=== PATIENT | female | born 1965 | race Caucasian/White ===

== ENCOUNTER 2019-02-18 14:45 | Inpatient (IN) | payer SELFPAY ==
[2019-02-18] VITALS (13 sets, daily range): BP systolic 111–163; BP diastolic 66–111; PULSE 85–162; RESP 12–28; TEMP 36.7–37.1; O2SAT 62–95; BMI 36.3; BMI 35.2
--- NOTE | 2019-02-18 15:11 | EKG12_ITS ---
Test Reason : Blood Pressure : / mmHG Vent. Rate : 088 BPM Atrial Rate : 088 BPM P-R Int : 170 ms QRS Dur : 058 ms QT Int : 342 ms P-R-T Axes : 054 194 050 degrees QTc Int : 413 ms Sinus rhythm with Premature atrial complexes Possible Left atrial enlargement Right superior axis deviation Low voltage QRS Cannot rule out Anterior infarct , age undetermined Abnormal ECG Confirmed by AYE MARTINEZ, SHAY ([id number]), proposal editor EZEQUIEL GARCIA ([id number]) on 02/21/2019 10:49:27 AM Referred By: Confirmed By:SHAY GRIFFITHS MD
--- NOTE | 2019-02-18 15:12 | ED.DCSUM_ITS ---
- ER Visit Summary Date of Service: 02/18/19 Chief Complaint: Shortness of breath and leg swelling History of Present Illness: The patient is a 53 F. Past medical or surgical history. Patient has not seen a doctor for years. Currently she is on no medications. She states the last 2+ months she is been short of breath and swelling of her abdomen and lower extremities. She attributed all this to seasonal allergies. States that shortness of breath comes and goes. She denies any fever or chills. No hemoptysis. No chest pain. Physical Examination: Middle-aged female. Vital signs stable except she is a pulse of 60% in triage. She is hypoxic. H EENT exam unremarkable. Neck nontender. Lungs clear to auscultation bilaterally. Heart regular rhythm no murmur rate 100. Abdomen soft. Swollen. Nontender. No peritoneal signs. Extremities moves all 4. She does have 1-2+ pitting edema both lower extremities. Calves are nontender. He is able to do both dorsi plantarflexion normal creative assistant strength. Neurologically she is awake alert with no focal motor deficits. Test Results: CBC shows white count of 9. Hemoglobin 19 which is probably system with chronic hypoxia. Electrolytes show sodium 134. Chloride 92. CO2 39. Normal creatinine and gap. Liver enzymes normal. Troponin normal. BNP elevated 645. Chest x-ray shows cardiomegaly with a moderate to large right pleural effusion. EKG sinus rhythm rate 88 with PACs. No signs of PA or i schemia. There is low voltage. Emergency Department Course and Treatment: Clinically patient neither has congestive heart failure or possibly liver cirrhosis causing edema versus other etiologies. She is hypoxic on presentation but after oxygen she is now in the mid 90s. She is currently not in distress. Repeat exam she is resting comfortably on oxygen is been no significant change she and I went over her test results. Treatment Plan: I spoke to the hospitalist and she wanted me to obtain a CAT scan of the chest abdomen pelvis to evaluate the cardiomegaly, effusion and possible abdominal ascites prior to admission. Disposition: Admission Impression: Acute dyspnea with hypoxia Acute bilateral lower extremity edema Cardiomegaly with right pleural effusion This note was generated with [employer] dictation software. It may contain incorrect words, spelling, and punctuation that were not noted in review of the chart prior to signing ED Disposition - Plan for ED Patient: Referrals: NOT,DEFINED [NON-STAFF] -
--- NOTE | 2019-02-18 15:17 | NURSING ---
NO OLD EKGS
--- NOTE | 2019-02-18 15:28 | RAD_ITS ---
STUDY: X-RAY CHEST REASON FOR EXAM: Female, 53 years old. Chest pain TECHNIQUE: AP COMPARISON: None. FINDINGS: EKG leads project over the chest. Parenchymal opacity at the right lung base 6 years the right hemidiaphragm. Small right pleural effusion is noted. Parenchymal opacity and/or minor fissural fluid also identified. Left lung is clear. There is borderline cardiomegaly. Normal mediastinum and jammie. Normal visualized pulmonary arteries. Normal visualized aortic arch and descending thoracic aorta. No acute bony process. There is no demonstrated abnormality of the visualized soft tissue structures of the upper abdomen. RAD/Chest 1 View (Portable) IMPRESSION: Parenchymal consolidation of the right lung base with small effusion. May represent pneumonia but recommend follow-up x-ray to ensure complete resolution/exclude mass. Electronically Signed: Augustin Landon MD ([place]) at 15:48 EDT , Service support ,
[2019-02-18 15:55] LABS: Absolute Lymphocyte Count 0.78 X10^3/uL (0.83-4.51); Basophil# 0.07 X10^3/uL; Basophil% 0.8 % (0-1); Eosinophil# 0.05 X10^3/uL; Eosinophils% 0.6 % (0-5); Lymphocyte # 0.78 X10^3/ul (4.0); Lymphocyte % 8.6 % (19-41); Mean Corp Hgb Conc 32.5 g/dL (32-36); Mean Corpuscular Hgb 31.9 pg (27.0-32.0); Mean Corpuscular Volume 98.3 fL (81-99); Mean Platelet Vol. 10.3 fl (6.2-12.0); Monocyte# 1.05 X10^3/uL; Monocyte% 11.6 % (0-10); NRBC Flagged by Analyzer 0 % (0-5); Neutrophil # 7.04 X10^3/uL (2.7-7.7); Neutrophil % 78.1 % (47-70); Platelet Count 205 K/mm3 (150-450); RBC Distribution Width CV 13.8 % (11.6-14.6); RBC Distribution Width SD 49.9 fl (35.1-43.9); Red Blood Count 5.95 M/mm3 (4.2-5.4)
[2019-02-18 15:59] LABS: Hematocrit 58.5 % (37-47)
--- NOTE | 2019-02-18 16:00 | ED.RN ---
LAB WITH CRITICAL VALUE OF 19.[address] BAUER NOTIFIED AT THIS TIME.
[2019-02-18 16:02] LABS: AST(SGOT) 15 U/L (15-37); Alanine Aminotransfer ALT/SGPT 12 U/L (13-56); Albumin, Serum 3.3 g/dL (3.2-5.0); Alkaline Phosphatase 91 U/L (45-117); Anion Gap 3 (5-15); BUN 3 mg/dL (7-18); BUN/Creat Ratio 5.1 RATIO (10-20); Bilirubin, Direct 0.45 mg/dL (0.00-0.30); Calcium,Total 8.9 mg/dL (8.5-10.1); Chloride 92 mmol/L (98-107); Creatinine, Serum 0.59 mg/dL (0.55-1.02); EST Glomerular Filtration Rate 113 mL/min (>60); Est Glom Filt Rate - Afr Amer 136 mL/min (>60); Estimated Creatinine Clearance 89.12 ml/min; Globulin 3.8 g/dL (2.2-4.2); Glucose 98 mg/dL (74-106); Potassium 4.4 mmol/L (3.5-5.1); Protein, Total 7.1 g/dL (6.4-8.2); Sodium Level 134 mmol/L (136-145)
[2019-02-18 16:26] LABS: BNP,B-Type NATRIURETIC PEPTIDE 592.4 pg/mL (0-100)
--- NOTE | 2019-02-18 16:38 | HP.PCM_ITS ---
History of Present Illness Date of Admission: 02/18/19 Chief Complaint: shortness of breath The patient is a 53 year old F with no significant PMH; she has not seen a doctor since 1990. She was admitted through the ED on 02/18/2019 with a complaint of progressively worsening shortness of breath for the past 2 months. She had associated exertional shortness of breath which was still present at rest and had orthopnea and PND. She denied any weight loss and denied any nausea vomiting or diarrhea. She noted that she had lower extremity swelling and says she felt that her abdomen had also become a bit distended. She has an extensive smoking history and has about a [id number] smoking history minimum a nd was also drinking heavily, drinking about 10 cans of beer a day since the and only quit about a month ago. She denies any weight loss. Review of systems otherwise negative. On arrival in the ED she was saturating in the 60s; saturation went up to the 90s with oxygen administration. Vitals were otherwise stable. Labs showed sodium of 135,a dn bicarb of 39; BNP was 592, and initial troponin was negative. CBC showed hemoglobin of 19 with hematocrit of 58.5 and platelets of 205 as well as white cell count of 9. CXR showed parenchymal consolidation of the right lung base with small effusion. 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 Quit drinking ~ 1 month ago Drugs: None - *Family History Maternal History Items: No pertinent history Paternal History Items: No pertinent history Review of Systems Constitutional: Denies: Chills, Fever, Malaise, Weakness, Weight Change Eyes: Denies: Blurred vision HEENT: Denies: Head Aches, Sinus Congestion, Sinus Drainage Cardiovascular: Reports: Edema, Orthopnea, Paroxysmal Noc. Dyspnea. Denies: Chest Pain, Heaviness, Light Headedness, Palpitations Respiratory: Reports: Shortness of Breath, Shortness of breath at rest, Shortness of breath upon exertion. Denies: Cough, Sputum production Gastrointestinal: Denies: Abdominal Pain, Diarrhea, Dyspepsia, Nausea, Vomiting Genitourinary: Denies: Dysuria Musculoskeletal: Denies: Joint Pain, Joint Tenderness Skin: Denies: Rash, Wounds Neurological: Denies: Numbness, Tingling, Focal weakness Psychiatric: Denies: Anxiety, Depression, Homicidal Ideations, Suicidal Ideations Hematologic/ Lymphatic: Denies: Easy Bruising, Easy Bleeding VTE Information - Inpt Only VTE Present on Admission: No VTE Pharm Prophylaxis ordered?: Yes - Physical Exam Vitals/I&O's: Vital Signs Temp Pulse Resp BP Pulse Ox 98.4 F 96 18 158/109 H 95 02/18/19 14:48 02/18/19 16:12 02/18/19 14:48 02/18/19 16:12 02/18/19 16:12 Oxygen Flow Rate (L/min) 6 Oxygen Delivery Method Nasal Cannula Weight: 204 lb 12.951 oz Body Mass Index (BMI) 36.3 General: Alert, Oriented x3, Cooperative, No apparent distress HEENT: Atraumatic, PERRLA, EOMI, Normocephalic Oral: Dry Mucosa Neck: Supple, No JVD, Negative Carotid Bruits Lungs: - - markedly decreased breath sounds bibasally, mild wheezing in mid and lower lung pacheco; no crackles.on 6L of oyxgen Abdomen: Bowel Sounds Present, Soft, Non Tender, - - mild abdominal distension Extremities: No clubbing, No cyanosis, Edema - 2+ bipedal pitting edema Skin: - - diffuse erythema of abdomen and LE; has erythema and cyanosis of palms bilaterally Musculoskeletal: No Tenderness to Palpation of Joints or Extremities Lymphatic: No Cervical, Supraclavicular, or Inguinal Adenopathy Neurological: Cranial nerves II-XII grossly intact, Neuro grossly intact, Motor Exam 5/5 strength throughout Psych/Mental Status: Normal Affect, Appropriate, Alert and oriented to time, place, person, mood and affect Laboratory Results 02/18/19 15:25: WBC 9.0, RBC 5.95 H, Hgb 19.0 H*, Hct 58.5 H, MCV 98.3, MCH 31.9, MCHC 32.5, RDW Std Deviation 49.9 H, RDW Coeff of Charles 13.8, Plt Count 205, MPV 10.3, Immature Gran % (Auto) 0.300, Neut % (Auto) 78.1 H, Lymph % (Auto) 8.6 L, [place] % (Auto) 11.6 H, Eos % (Auto) 0.6, Baso % (Auto) 0.8, Absolute Neuts (auto) 7.0, Absolute Lymphs (auto) 0.78 L, Nucleated RBC % 0 02/18/19 15:25: Sodium 134 L, Potassium 4.4, Chloride 92 L, Carbon Dioxide 39.0 H, Anion Gap 3 L, BUN 3 L, Creatinine 0.59, Estim Creat Clear Calc 89.12, Est GFR (MDRD) Af Amer 136, Est GFR (MDRD) Non-Af 113, BUN/Creatinine Ratio 5.1 L, Glucose 98, Calcium 8.9, Total Bilirubin 0.90, Direct Bilirubin 0.45 H, AST 15, ALT 12 L, Alkaline Phosphatase 91, Troponin I < 0.015, Total Protein 7.1, Albumin 3.3, Globulin 3.8 02/18/19 15:25: B-Natriuretic Peptide 592.4 H Diagnostic Data Chest X-Ray 02/18/19 15:28 IMPRESSION: Parenchymal consolidation of the right lung base with small effusion. May represent pneumonia but recommend follow-up x-ray to ensure complete resolution/exclude mass. Electronically Signed: Augustin Landon MD ([place]) at 15:48 EDT , Service support , Assessment/Plan 53-year-old female admitted with complaint of shortness of breath for 2 months. 1. Acute hypoxic respiratory failure due to pleural effusion and heart failure (EF unknown) * admit to PC[facility] with telemetry * was saturating in the 60s on admission; required up to 6L of oxygen for sats to go up to 90s * no ABG done * CXR showed right sided pleural effusion and cardiomegaly * get ABG stat * titrate oxygen to maintain sats>90% * IV lasix 40mg bid * CT chest with IV contrast, Abdominopelvic CT scan: chest CT showed large right and trace left pleural effusions with pulmonary volume loss and atelectasis greater on the right and the left and right upper abdominal ascites and body wall edema as well as skin thickening of the bilateral breasts and mild cardiomegaly. * CT abdomen pelvis showed moderate diffuse free fluid and no other definite acute abnormalities. * consult pulmonology * 2. Right pleural effusion * possible etiologies include heart failure, lung malignancy due to extensive history of smoking. * I am not convinced she has an infection, as symptoms have been going on for 2 months * diurese for heart failure; consult pulmonology * CT chest pending for further delineation * 3. Heart failure (ef Unknown) * BNp was elevated at 592.4; CXR showed cardiomegaly * get 2D echo * diurese with IV lasix 40mg bid * EKG showed no acute ST changes. * strict input output chart; fluid restriction to 1500 cc daily * 4. Polycythemia * likely a secondary polycythemia, as she has an extensive smoking history * patient has diffuse erythema and dusky bluish discoloration of her palms and lips * Hb was 19, with HCT of 58.5 * chest CT pending to evaluate for possible malignancy causing polycythemia: findings as under 1. * counseled to quit smoking * consider hematology/oncology consult after CT chest is evaluated * 5. metabolic alkalosis: bicarb is 39; this is likely compensatory to Co2 retention as she has an extensive smoking history. Will get ABG to evaluate 6. Chronic alcohol abuse: * Quit about a month ago but states she is to drink about 10 beers a day for the past 30 years. * Has never gone into withdrawal. * Liver enzymes are mildly elevated direct bilirubin at 0.45 but is otherwise normal: i therefore do not think cirrhosis is high on the differential list for cause of LE edema * Will monitor. DVT prophylaxis: Lovenox CODE STATUS: full code * Patient and counseled extensively about different types of CODE STATUS including full code, DNR CCA and DNR CCA. Patient elects to be full code. Total [id number] time 16 minutes. Code Visit Inpatient E&M: 38124 Init Hosp L3 Procedures: 36953 Advncd Care Plan 30 Min
--- NOTE | 2019-02-18 16:38 | CT_ITS ---
STUDY: CT ABDOMEN AND PELVIS WITH CONTRAST REASON FOR EXAM: Female, 53 years old. Abdominal distention and ascites. RADIATION DOSAGE (If Supplied By Facility): CTDIvol = ( 22.23 ) mGy, DLP = ( 2102.76 ) mGycm TECHNIQUE: Transaxial images were obtained from the dome of the diaphragm to the symphysis pubis without oral contrast. IV Isovue 300 100CC was administered. Sagittal and coronal images were reconstructed. Individualized dose optimization techniques were used for this CT. COMPARISON: CT of the chest of the same day.. FINDINGS: See separate report for discussion of the chest. There is moderate ascites in all quadrants. Grossly normal liver. No masses. No specific evidence for cirrhosis although it is not Nondistended gallbladder with a slightly thickened wall and pericholecystic edema. No gross stones. Pancreas and spleen grossly normal. Normal bilateral adrenal glands. Normal right kidney. Normal left kidney. Evaluation of the GI tract is limited by absence of oral contrast. Cannot exclude stomach wall thickening. No dilated loops of bowel or evidence for obstruction. Cannot exclude segmental thickening of the toure of the small or large bowel. Cannot exclude enteritis or colitis. Moderate diffuse fecal retention. Diverticulosis without definite diverticulitis. Appendix within normal limits. Normal abdominal aorta. Normal inferior vena cava. There is borderline retroperitoneal lymphadenopathy with enlarged nodes no greater than 10mm in the short axis diameter. Normal urinary bladder. Diffuse anasarca of the abdominal wall. Normal osseous structures. CT/Abdomen/Pelvis W IV Cont ONLY IMPRESSION: Moderate diffuse free fluid. No other definite acute abnormalities although evaluation of the GI tract is limited because oral contrast was not given. Electronically Signed: Wilmer Diaz MD at 17:24 EDT , Service support ,
--- NOTE | 2019-02-18 16:38 | CT_ITS ---
STUDY: CT CHEST WITH CONTRAST REASON FOR EXAM: Female, 53 years old. Abdominal distention, ascites RADIATION DOSAGE (If Supplied By Facility): CTDIvol = ( 22.23 ) mGy, DLP = ( 2102.76 ) mGycm TECHNIQUE: Transaxial imaging was performed following intravenous administration of IV 100mL Isovue-300 100CC. Multiplanar coronal and sagittal images were reformatted. Individualized dose optimization techniques were used for this CT. COMPARISON: Chest x-ray from earlier today FINDINGS: There is volume loss and atelectasis involving the right lower lobe and right middle lobe. Mild atelectasis of the medial right upper lobe. There are a few subsegmental areas of atelectasis involving the left lower lobe and lingula. Small volume left pleural effusion. A large volume right pleural effusion is identified. No pneumothorax. There is mild cardiac enlargement. There are multiple small lymph nodes within the mediastinum, which are normal in size and morphology most compatible with reactive lymph hyperplasia. Normal hilar regions. Normal enhanced pulmonary arteries. Normal aorta arch and descending thoracic aorta. There are multi-level degenerative changes of the thoracic spine. There is mild ascites of the upper abdomen. Diffuse body wall edema. There is skin thickening of the right and left breasts. CT/Chest WITH Contrast IMPRESSION: 1. Large right and trace left pleural effusions with right more than left pulmonary volume loss/atelectasis. 2. Right upper abdominal ascites (small-volume) partially visualized. 3. Body wall edema. Skin thickening of the bilateral breasts. 4. Mild cardiomegaly. Electronically Signed: Augustin Landon MD ([place]) at 17:31 EDT , Service support ,
--- NOTE | 2019-02-18 16:42 | NURSING ---
DR BOLAND IN ER
--- NOTE | 2019-02-18 16:42 | NURSING ---
PCU ACUTE HYPOXIC RESP FAILURE KRYSTIAN
[2019-02-18] MEDS: Furosemide 40 MG/4 ML Vial IV (18:28)
[2019-02-18] MEDS: Lisinopril 10 MG Tablet PO (18:29)
[2019-02-18] MEDS: 0.9% Saline Lock 10 ML Syringe IV (18:34)
[2019-02-18 20:31] LABS: Allen Test POS; Base Excess 18 mmol/L (-2 to +2); Bicarbonate 44.6 mmol/L (22-26); Blood Gas Specimen Type ART; O2 Delivery Device Nasal Can; PO2 79 mmHG (75-100); SITE L Radial; SO2 93 % (95-99); Time Given 2013; Total Carbon Dioxide 47 mmol/L; pCO2 90.6 mmHg (35-45)
--- NOTE | 2019-02-18 21:08 | CPS ---
Critical results read to Dr. Chapa
[2019-02-18 22:50] LABS: Allen Test POS; Base Excess 19 mmol/L (-2 to +2); Bicarbonate 45.1 mmol/L (22-26); Blood Gas Specimen Type ART; EPAP 5; FI02 40; IPAP 13; PO2 70 mmHG (75-100); RR 12; SITE R Radial; SO2 91 % (95-99); Time Given 2235; Total Carbon Dioxide 48 mmol/L; pCO2 88.6 mmHg (35-45); pH 7.32 (7.35-7.45)
--- NOTE | 2019-02-18 23:44 | CPS ---
Critical results read to physician
[2019-02-19] VITALS (25 sets, daily range): BP systolic 93–119; BP diastolic 52–76; PULSE 70–96; RESP 14–21; TEMP 36.4–37; O2SAT 85–93
--- NOTE | 2019-02-19 01:15 | NURSING ---
This RN called respiratory at time to adjust pt bipap settings as she was only satting 86%.
--- NOTE | 2019-02-19 05:55 | ECHOD_ITS ---
Reason For Study: CHF Procedure This was a 2D Doppler, Color Flow transthoracic echocardiogram. Exam performed portable in patient room. Left Ventricle Normal LV size. Left ventricular systolic function is normal. The estimated ejection fraction is 55 %. Stage 1 diastolic dysfunction. No regional wall motion abnormalities noted. Right Ventricle Moderately dilated right ventricle. Mild global right ventricular systolic dysfunction. Atria The left atrium is severely enlarged. The right atrium is severely enlarged. Mitral Valve Normal mitral valve. Mild-Moderate (1-2+) eccentric mitral valve insufficiency. Tricuspid Valve Normal tricuspid valve. Moderate (2+) tricuspid valve insufficiency. Pulmonary artery systolic pressure is 48 mmHg. Aortic Valve Normal aortic valve. Pulmonic Valve Normal pulmonic valve. Great Vessels Normal aortic root. The pulmonary artery is normal size. Normal inferior vena cava. Pericardium/Pleural Small pericardial effusion. MMode/2D Measurements & Calculations LVIDd: 3.8 cm IVSd: 1.1 cm Ao root diam: 3.1 cm LVIDs: 2.5 cm LVPWd: 1.0 cm RVDd: 4.3 cm FS: 32.7 % LAV(MOD-bp): 100.1 ml LA A4 area: 31.6 cm2 LA dimension(2D): 3.7 cm LAV(MOD-bp) Indexed: 52.1 ml/m2 LAV(MOD-sp2): 91.9 ml LAV(MOD-sp4): 113.9 ml RA A4 area: 30.8 cm2 Time Measurements MV dec time: 0.28 sec Doppler Measurements & Calculations MV E max ariel: 95.9 cm/sec Lat Peak E' Areil: 11.9 cm/sec Med Peak E' Ariel: 6.3 cm/sec MV A max ariel: 101.1 cm/sec E/E' lat: 8.0 E/E' med: 15.1 MV E/A: 0.95 Ao V2 max: 206.0 cm/sec LV V1 max: 112.5 cm/sec PA V2 max: 114.4 cm/sec Ao max P.0 mmHg LV V1 max P.1 mmHg Ao V2 mean: 142.4 cm/sec LV V1 mean P.9 mmHg Ao mean P.0 mmHg LV V1 mean: 80.5 cm/sec Ao V2 VTI: 34.1 cm LV V1 VTI: 21.3 cm TR max ariel: 324.4 cm/sec TR max P.1 mmHg Interpretation Summary Normal LV size. Left ventricular systolic function is normal. The estimated ejection fraction is 55 %. Stage 1 diastolic dysfunction. The left atrium is severely enlarged. The right atrium is severely enlarged. Pulmonary artery systolic pressure is 48 mmHg. Small pericardial effusion. Ordering Physician: Darline Chapa Referring Physician: NO PCP Performed By: Aarti Murguia RDCS, RVT
[2019-02-19 06:37] LABS: Absolute Lymphocyte Count 0.82 X10^3/uL (0.83-4.51); Absolute Neutrophil Count 5.4 X10^3/uL (2.0-7.7); Basophil# 0.04 X10^3/uL; Basophil% 0.6 % (0-1); Eosinophil# 0.08 X10^3/uL; Eosinophils% 1.1 % (0-5); Hematocrit 55.5 % (37-47); Hemoglobin 17.5 g/dL (12.0-15.0); Lymphocyte # 0.82 X10^3/ul (4.0); Lymphocyte % 11.3 % (19-41); Mean Corp Hgb Conc 31.5 g/dL (32-36); Mean Corpuscular Hgb 31.8 pg (27.0-32.0); Mean Corpuscular Volume 100.9 fL (81-99); Mean Platelet Vol. 10.2 fl (6.2-12.0); Monocyte# 0.92 X10^3/uL; Monocyte% 12.7 % (0-10); NRBC Flagged by Analyzer 0 % (0-5); Neutrophil # 5.36 X10^3/uL (2.7-7.7); Neutrophil % 73.9 % (47-70); Platelet Count 179 K/mm3 (150-450); RBC Distribution Width CV 13.9 % (11.6-14.6); RBC Distribution Width SD 51.8 fl (35.1-43.9); White Blood Count 7.3 K/mm3 (4.4-11.0)
[2019-02-19 06:52] LABS: Anion Gap 1 (5-15); BUN 3 mg/dL (7-18); BUN/Creat Ratio 5.8 RATIO (10-20); Chloride 96 mmol/L (98-107); Cholesterol 120 mg/dL (200); Creatinine, Serum 0.52 mg/dL (0.55-1.02); EST Glomerular Filtration Rate 130 mL/min (>60); Est Glom Filt Rate - Afr Amer 157 mL/min (>60); Estimated Creatinine Clearance 101.12 ml/min; Glucose 74 mg/dL (74-106); High Density Lipoprotein 56 mg/dL; Potassium 4.1 mmol/L (3.5-5.1); Sodium Level 138 mmol/L (136-145); Triglycerides 44 mg/dL; Very Low Density Lipoprotein 9 mg/dL (5-40)
--- NOTE | 2019-02-19 07:02 | PCM.CONS.PUL ---
Reason for Consult Date of Consultation: 02/19/19 Reason for Consultation: Acute hypoxemic respiratory failure History of Present Illness: The patient is a 53-year-old female, with a history as outlined below, who presented to the emergency department on February 18 with complaints of gradually worsening shortness of breath over several months duration with associated abdominal and lower extremity swelling. The patient does have a known history of both tobacco and alcohol dependency. The patient reports that she currently smokes 1 pack of cigarettes per day and has been doing so for the last 35 years. 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 She does not currently utilize inhalers at her baseline. She does not utilize supplemental oxygen at her baseline either. She does report that she previously drank upwards of 15 beers daily, but states that she has been abstinent from alcohol consumption now for 1 month. On presentation to the emergency department, the patient was noted to be afebrile, mildly tachycardic and hemodynamically stable. She was noted to be hypoxemic on room air. Initial laboratory evaluation revealed no evidence of a leukocytosis. Hemoglobin was noted to be increased to 19 g/dL. Chemistry profile was notable for a serum bicarbonate of 39 with normal transaminase levels. Troponin was negative. BNP was elevated to 592. Arterial blood gas obtained on 6 L/min via nasal cannula revealed a pH of 7.30 with a corresponding PCO2 of 90 and PO2 of 79. CT abdomen/pelvis revealed moderate diffuse free fluid without specific evidence for cirrhosis. A contrasted chest CT revealed evidence of a small left-sided pleural effusion along with a moderate to large right pleural effusion. The patient was subsequently admitted to the progressive care unit where she was placed on diuretic therapy for presumptive decompensated heart failure. In addition, she did require the initiation of BiPAP therapy. Past Medical History Allergies No Known Allergies Allergy (Verified 02/18/19 14:46) Home Medications: Ambulatory Orders Medication Instructions Recorded NK 02/18/19 Surgical History: no surgical history Psychiatric History: No pertinent psych hx TAPE CUTTER History: No pertinent TAPE CUTTER history Lives: With Family Smoking Status: Heavy Smoker (>10/day) Tobacco Use: Cigarettes Alcohol: Heavy - used to drink 10 beers daily. Quit drinking ~ 1 month ago Drugs: None - *Family History Maternal History Items: No pertinent history Paternal History Items: No pertinent history Review of Systems Constitutional: Reports: Weight Change. Denies: Chills, Fever Eyes: Denies: Blurred vision, Double vision HEENT: Denies: Head Aches, Sinus Congestion, Sinus Drainage Cardiovascular: Denies: Chest Pain, Palpitations Respiratory: Reports: Shortness of Breath. Denies: Cough Gastrointestinal: Denies: Diarrhea, Nausea, Vomiting Genitourinary: Denies: Dysuria Musculoskeletal: Denies: Joint Pain, Joint Tenderness Skin: Reports: Skin Changes Neurological: Denies: Numbness, Tingling, Focal weakness Psychiatric: Denies: Anxiety, Depression, Homicidal Ideations, Suicidal Ideations Hematologic/ Lymphatic: Denies: Easy Bruising, Easy Bleeding Objective: The patient's most recent lab work, culture data and imaging studies have all been personally reviewed. - Physical Exam Vitals/I&O's: Vital Signs Temp Pulse Resp BP Pulse Ox 97.7 F L 70 20 H 93/52 L 93 02/19/19 06:55 02/19/19 06:55 02/19/19 06:55 02/19/19 06:55 02/19/19 06:55 Oxygen Flow Rate (L/min) 6 Oxygen Delivery Method Bi-pap Weight: 200 lb 9.93 oz Body Mass Index (BMI) 35.2 Intake and Output for Last 24 Hours 02/17/19 02/18/19 02/19/19 23:59 23:59 23:59 Intake Total 360 / 360 Output Total 2850 / 2850 0 / 0 Balance -2490 / -2490 General: Alert, Cooperative, No apparent distress, - - BiPAP mask currently in place. HEENT: Atraumatic, PERRLA, Normocephalic Oral: Dry Mucosa Neck: Supple, No Nodes, Trachea Midline Lungs: No rhonchi, No rales, Diminished, Wheezes Cardiovascular: Regular rate, Regular Rhythm, Normal S1, Normal S2, No murmurs Abdomen: Bowel Sounds Present, Soft, Non Tender, Distended Extremities: No clubbing, No cyanosis, - - Significant bilateral lower externally pitting edema Skin: - - Pretibial erythema bilaterally Musculoskeletal: No Muscle Wasting Lymphatic: No Cervical, Supraclavicular, or Inguinal Adenopathy Neurological: Cranial nerves II-XII grossly intact, Neuro grossly intact Psych/Mental Status: Normal Affect, Appropriate Labs (Last 48 Hours) 10/02/18/19 02/18/19 15:25 15:25 15:25 WBC 9.0 RBC 5.95 H Hgb 19.0 H* Hct 58.5 H MCV 98.3 MCH 31.9 MCHC 32.5 RDW Std Deviation 49.9 H RDW Coeff of Charles 13.8 Plt Count 205 MPV 10.3 Immature Gran % (Auto) 0.300 Neut % (Auto) 78.1 H Lymph % (Auto) 8.6 L Lewis % (Auto) 11.6 H Eos % (Auto) 0.6 Baso % (Auto) 0.8 Absolute Neuts (auto) 7.0 Absolute Lymphs (auto) 0.78 L Nucleated RBC % 0 Specimen Type Sample Site pH Bicarbonate Actual POC Total CO2 Base Excess O2 Saturation O2 % ABG pCO2 ABG pO2 Jerome Test Respiration Rate O2 Delivery Device Liter Flow EPAP IPAP Blood Gas Notified Whom Blood Gas Notified Time Sodium 134 L Potassium 4.4 Chloride 92 L Carbon Dioxide 39.0 H Anion Gap 3 L BUN 3 L Creatinine 0.59 Estim Creat Clear Calc 89.12 Est GFR (MDRD) Af Amer 136 Est GFR (MDRD) Non-Af 113 BUN/Creatinine Ratio 5.1 L Glucose 98 Calcium 8.9 Total Bilirubin 0.90 Direct Bilirubin 0.45 H AST 15 ALT 12 L Alkaline Phosphatase 91 Troponin I < 0.015 B-Natriuretic Peptide 592.4 H Total Protein 7.1 Albumin 3.3 Globulin 3.8 Triglycerides Cholesterol LDL Cholesterol VLDL Cholesterol HDL Cholesterol 02/18/19 02/18/19 02/19/19 20:21 22:42 05:49 WBC 7.3 RBC 5.50 H Hgb 17.5 H Hct 55.5 H MCV 100.9 H MCH 31.8 MCHC 31.5 L RDW Std Deviation 51.8 H RDW Coeff of Charles 13.9 Plt Count 179 MPV 10.2 Immature Gran % (Auto) 0.400 Neut % (Auto) 73.9 H Lymph % (Auto) 11.3 L Lewis % (Auto) 12.7 H Eos % (Auto) 1.1 Baso % (Auto) 0.6 Absolute Neuts (auto) 5.4 Absolute Lymphs (auto) 0.82 L Nucleated RBC % 0 Specimen Type ART ART Sample Site L Radial R Radial pH 7.30 L 7.32 L Bicarbonate Actual 44.6 H 45.1 H POC Total CO2 47 48 Base Excess 18 H 19 H O2 Saturation 93 L 91 L O2 % 40 ABG pCO2 90.6 H* 88.6 H* ABG pO2 79 70 L Jerome Test POS POS Respiration Rate 12 O2 Delivery Device Nasal Can Bi / C PAP Liter Flow 6.0 EPAP 5 IPAP 13 Blood Gas Notified Whom HOSP HOSP MD Blood Gas Notified Time 2012 2234 Sodium Potassium Chloride Carbon Dioxide Anion Gap BUN Creatinine Estim Creat Clear Calc Est GFR (MDRD) Af Amer Est GFR (MDRD) Non-Af BUN/Creatinine Ratio Glucose Calcium Total Bilirubin Direct Bilirubin AST ALT Alkaline Phosphatase Troponin I B-Natriuretic Peptide Total Protein Albumin Globulin Triglycerides Cholesterol LDL Cholesterol VLDL Cholesterol HDL Cholesterol 02/19/19 05:49 WBC RBC Hgb Hct MCV MCH MCHC RDW Std Deviation RDW Coeff of Charles Plt Count MPV Immature Gran % (Auto) Neut % (Auto) Lymph % (Auto) Lewis % (Auto) Eos % (Auto) Baso % (Auto) Absolute Neuts (auto) Absolute Lymphs (auto) Nucleated RBC % Specimen Type Sample Site pH Bicarbonate Actual POC Total CO2 Base Excess O2 Saturation O2 % ABG pCO2 ABG pO2 Jerome Test Respiration Rate O2 Delivery Device Liter Flow EPAP IPAP Blood Gas Notified Whom Blood Gas Notified Time Sodium 138 Potassium 4.1 Chloride 96 L Carbon Dioxide 41.0 H Anion Gap 1 L BUN 3 L Creatinine 0.52 L Estim Creat Clear Calc 101.12 Est GFR (MDRD) Af Amer 157 Est GFR (MDRD) Non-Af 130 BUN/Creatinine Ratio 5.8 L Glucose 74 Calcium 8.0 L Total Bilirubin Direct Bilirubin AST ALT Alkaline Phosphatase Troponin I B-Natriuretic Peptide Total Protein Albumin Globulin Triglycerides 44 Cholesterol 120 LDL Cholesterol 55 VLDL Cholesterol 9 HDL Cholesterol 56 Clinical Impression(s) from Imaging Studies Chest X-Ray 02/18/19 15:28 IMPRESSION: Parenchymal consolidation of the right lung base with small effusion. May represent pneumonia but recommend follow-up x-ray to ensure complete resolution/exclude mass. Electronically Signed: Augustin Landon MD ([place]) at 15:48 EDT , Service support , Abdomen/Pelvis CT 02/18/19 16:38 IMPRESSION: Moderate diffuse free fluid. No other definite acute abnormalities although evaluation of the GI tract is limited because oral contrast was not given. Electronically Signed: Wilmer Diaz MD at 17:24 EDT , Service support , Chest CT 02/18/19 16:38 IMPRESSION: 1. Large right and trace left pleural effusions with right more than left pulmonary volume loss/atelectasis. 2. Right upper abdominal ascites (small-volume) partially visualized. 3. Body wall edema. Skin thickening of the bilateral breasts. 4. Mild cardiomegaly. Electronically Signed: Augustin Landon MD ([place]) at 17:31 EDT , Service support , Current Medications Aspirin (Ecotrin) 81 mg PO DAILY@0800 [facility]ENE Dextrose (D50w Syringe) 0 gm IV X1 PRN; Protocol PRN Reason: Hypoglycemia Enoxaparin Sodium (Lovenox) 40 mg SC DAILY@1000 [facility] Furosemide (Lasix) 40 mg IV BIDLX [facility] Last Admin: 02/18/19 18:28 Dose: 40 mg Documented by: Glucagon () 1 mg IM .X1 PRN PRN Reason: Hypoglycemia Lisinopril (Zestril) 10 mg PO DAILY [facility] Last Admin: 02/18/19 18:29 Dose: 10 mg Documented by: Sodium Chloride () 10 - 40 ml IV UD PRN PRN Reason: SALINE FLUSH Last Admin: 02/18/19 18:34 Dose: 10 ml Documented by: Assessment/Plan RECOMMENDATIONS: 1. Continue scheduled IV Lasix. 2. Await results of surface echocardiogram. 3. May need to consider inpatient cardiology consultation to assist with heart failure management. 4. Continue BiPAP therapy with naps and nightly at a minimum. 5. Maintain oxygen saturations 88 to 92% to prevent paradoxical CO2 retention. 6. Start scheduled duo nebs while awake. 7. Start prednisone 40 mg daily by mouth. 8. Recommend outpatient pulmonary follow-up within 2 weeks of discharge. IMPRESSIONS: 1. Acute combined respiratory failure Likely multifactorial in etiology with presumptive underlying heart failure and obstructive lung disease contributing. I do suspect that the patient's effusions noted on chest CT are related to underlying heart failure. A surface echocardiogram is currently pending. In addition, the patient has a prolonged smoking history, raising the possibility of underlying COPD. She reports that she does not utilize supplemental oxygen at her baseline. However, given that the patient has evidence of polycythemia, this may be secondary to prolonged hypoxemia as an outpatient. For now, I agree with continued attempts at volume optimization with IV diuretics, pending the results of her surface echocardiogram. I am going to place orders for scheduled duo nebs while awake and place the patient on prednisone 40 mg daily. I explained to the patient that I strongly recommended that she follow-up in the pulmonary medicine clinic on an outpatient basis so that baseline PFTs can be obtained and the patient placed on an inhaler regimen, if clinically indicated. The patient will be continued on BiPAP therapy as needed. If she becomes intolerant of her current pressure support, she can be transitioned to AVAPS therapy, as she does appear to be a chronic CO2 retainer. 2. Polycythemia Suspect this may be secondary to hypoxemia on her home environment, given the patient's prolonged smoking history. It is highly possible that she may require supplemental O2 upon discharge from the hospital. 3. Chronic alcohol and tobacco dependency The patient reports that she has been abstinent from alcohol consumption now for 1 month. However, prior to this, she was a heavy drinker. Recent CT abdomen showed no radiographic evidence of cirrhosis. Patient is a current daily smoker. Nicotine replacement therapy can be offered to her while admitted to the hospital. I would recommend outpatient pulmonary follow-up upon discharge. This note was generated with [employer] dictation software. It may contain incorrect words, spelling, and punctuation that were not noted in checking the note before signing. Code Visit Inpatient E&M: 74156 Init Hosp L3
[2019-02-19] MEDS: Ipratropium/Albuterol Sulfate 3 ML AMPUL.NEB INHALATION ×4 (07:48→20:11)
[2019-02-19] MEDS: Aspirin E.C. 81 MG Tablet PO (08:05)
[2019-02-19] MEDS: Furosemide 40 MG/4 ML Vial IV ×2 (09:02→17:13)
[2019-02-19] MEDS: predniSONE 20 MG Tablet 40 MG PO (09:02)
[2019-02-19] MEDS: Enoxaparin 40 MG/0.4 ML Syringe SC (09:02)
[2019-02-19] MEDS: Lisinopril 10 MG Tablet PO (09:02)
--- NOTE | 2019-02-19 12:36 | PCM.PROGNOTE ---
Subjective: Patient seen and examined. Reports improvement in breathing. Patient reports she continues to have dyspnea with exertion. Lower extremity and abdominal swelling improving. Patient reports she thinks she is approximately 30 pounds above her baseline weight. - Physical Exam Vitals/I&O's: Vital Signs Temp Pulse Resp BP Pulse Ox 98.0 F 87 20 H 107/56 L 89 02/19/19 12:00 02/19/19 12:00 02/19/19 12:00 02/19/19 12:00 02/19/19 12:00 Oxygen Flow Rate (L/min) 5 Oxygen Delivery Method Nasal Cannula Weight: 200 lb 9.93 oz Body Mass Index (BMI) 35.2 Intake and Output for Last 24 Hours 02/17/19 02/18/19 02/19/19 23:59 23:59 23:59 Intake Total 360 / 360 350 / 350 Output Total 2850 / 2850 1000 / 1000 Balance -2490 / -2490 -650 / -650 General: Alert, Oriented x3, Cooperative HEENT: Atraumatic, PERRLA, EOMI, Normocephalic Neck: Supple, No JVD, Negative Carotid Bruits Lungs: Clear to auscultation, Diminished Cardiovascular: Regular rate, Regular Rhythm, Normal S1, Normal S2, No murmurs Abdomen: Bowel Sounds Present, Soft, Non Tender, - - Mild distention Extremities: No edema - Bilateral lower extremities Skin: No rashes, No breakdown, - - Chronic skin changes bilateral lower extremities with hyperpigmentation Musculoskeletal: No Tenderness to Palpation of Joints or Extremities Neurological: Cranial nerves II-XII grossly intact, Neuro grossly intact Psych/Mental Status: Normal Affect, Appropriate Laboratory Results 02/18/19 15:25: WBC 9.0, RBC 5.95 H, Hgb 19.0 H*, Hct 58.5 H, MCV 98.3, MCH 31.9, MCHC 32.5, RDW Std Deviation 49.9 H, RDW Coeff of Charles 13.8, Plt Count 205, MPV 10.3, Immature Gran % (Auto) 0.300, Neut % (Auto) 78.1 H, Lymph % (Auto) 8.6 L, Morrison % (Auto) 11.6 H, Eos % (Auto) 0.6, Baso % (Auto) 0.8, Absolute Neuts (auto) 7.0, Absolute Lymphs (auto) 0.78 L, Nucleated RBC % 0 02/18/19 15:25: Sodium 134 L, Potassium 4.4, Chloride 92 L, Carbon Dioxide 39.0 H, Anion Gap 3 L, BUN 3 L, Creatinine 0.59, Estim Creat Clear Calc 89.12, Est GFR (MDRD) Af Amer 136, Est GFR (MDRD) Non-Af 113, BUN/Creatinine Ratio 5.1 L, Glucose 98, Calcium 8.9, Total Bilirubin 0.90, Direct Bilirubin 0.45 H, AST 15, ALT 12 L, Alkaline Phosphatase 91, Troponin I < 0.015, Total Protein 7.1, Albumin 3.3, Globulin 3.8 02/18/19 15:25: B-Natriuretic Peptide 592.4 H 02/18/19 20:21: Specimen Type ART, Sample Site L Radial, pH 7.30 L, Bicarbonate Actual 44.6 H, POC Total CO2 47, Base Excess 18 H, O2 Saturation 93 L, ABG pCO2 90.6 H*, ABG pO2 79, Jerome Test POS, O2 Delivery Device Nasal Can, Liter Flow 6.0, Blood Gas Notified Whom [facility] , Blood Gas Notified Time 201202/18/19 22:42: Specimen Type ART, Sample Site R Radial, pH 7.32 L, Bicarbonate Actual 45.1 H, POC Total CO2 48, Base Excess 19 H, O2 Saturation 91 L, O2 % 40, ABG pCO2 88.6 H*, ABG pO2 70 L, Jerome Test POS, Respiration Rate 12, O2 Delivery Device Bi / C PAP, EPAP 5, IPAP 13, Blood Gas Notified Whom [facility] , Blood Gas Notified Time 223402/19/19 05:49: WBC 7.3, RBC 5.50 H, Hgb 17.5 H, Hct 55.5 H, MCV 100.9 H, MCH 31.8, MCHC 31.5 L, RDW Std Deviation 51.8 H, RDW Coeff of Charles 13.9, Plt Count 179, MPV 10.2, Immature Gran % (Auto) 0.400, Neut % (Auto) 73.9 H, Lymph % (Auto) 11.3 L, Morrison % (Auto) 12.7 H, Eos % (Auto) 1.1, Baso % (Auto) 0.6, Absolute Neuts (auto) 5.4, Absolute Lymphs (auto) 0.82 L, Nucleated RBC % 0 02/19/19 05:49: Sodium 138, Potassium 4.1, Chloride 96 L, Carbon Dioxide 41.0 H, Anion Gap 1 L, BUN 3 L, Creatinine 0.52 L, Estim Creat Clear Calc 101.12, Est GFR (MDRD) Af Amer 157, Est GFR (MDRD) Non-Af 130, BUN/Creatinine Ratio 5.8 L, Glucose 74, Calcium 8.0 L, Triglycerides 44, Cholesterol 120, LDL Cholesterol 55, VLDL Cholesterol 9, HDL Cholesterol 56 Current Medications Albuterol/Ipratropium (Duoneb) 3 ml INHALATION Q4HWA.RT [facility] Last Admin: 02/19/19 11:27 Dose: 3 ml Documented by: Aspirin (Ecotrin) 81 mg PO DAILY@0800 [facility] Last Admin: 02/19/19 08:05 Dose: 81 mg Documented by: Dextrose (D50w Syringe) 0 gm IV X1 PRN; Protocol PRN Reason: Hypoglycemia Enoxaparin Sodium (Lovenox) 40 mg SC DAILY@1000 [facility] Last Admin: 02/19/19 09:02 Dose: 40 mg Documented by: Furosemide (Lasix) 40 mg IV BIDLX [facility] Last Admin: 02/19/19 09:02 Dose: 40 mg Documented by: Glucagon () 1 mg IM .X1 PRN PRN Reason: Hypoglycemia Lisinopril (Zestril) 10 mg PO DAILY [facility] Last Admin: 02/19/19 09:02 Dose: 10 mg Documented by: Prednisone () 40 mg PO DAILY@0800 [facility] Last Admin: 02/19/19 09:02 Dose: 40 mg Documented by: Sodium Chloride () 10 - 40 ml IV UD PRN PRN Reason: SALINE FLUSH Last Admin: 02/18/19 18:34 Dose: 10 ml Documented by: Medical Necessity - Tobacco Use Smoking Status: Heavy Smoker (>10/day) Tobacco Use: Cigarettes Assessment/Plan 1. Acute hypoxic respiratory failure secondary to CHF with large right pleural effusion-continue supplement oxygen to maintain O2 at or above 90%. Pulmonary medicine consulted. Walking pulse ox prior to discharge. Outpatient follow-up with pulmonary medicine. Continue BiPAP as needed. 2. New onset CHF, right pleural effusion-unclear subtype. Patient reports approximate 30 pound weight gain. Continue IV Lasix 40 mg twice daily. Strict I&O. Daily weight. Juan Luis wraps bilateral lower extremities. Echocardiogram ordered. Pending results, possible cardiology consult. 3. Polycythemia-suspect secondary polycythemia as a result of hypoxemia/long-term smoking history. 4. Chronic alcohol [id number] alcohol use, quit approximately 1 month ago. 5. Tobacco dependence-encourage cessation. DVT prophylaxis- Lovenox sc This patient was seen by LUKE Carroll under the supervision of Dr. Hernandez.
[2019-02-20] VITALS (25 sets, daily range): BP systolic 103–141; BP diastolic 53–79; PULSE 69–169; RESP 15–25; TEMP 36.7–37.3; O2SAT 87–99
[2019-02-20] MEDS: 0.9% Saline Lock 10 ML Syringe IV ×3 (03:50→22:38)
--- NOTE | 2019-02-20 05:55 | RAD_ITS ---
HISTORY: Pleural Effusion for follow-up EXAMINATION/TECHNIQUE: XR Chest 2 Views: COMPARISON: CT chest 02/18/2019 FINDINGS: Cardiac telemetry monitors in place. No significant change. Moderate to large right pleural effusion and small left pleural effusion. Bibasilar and right middle lobe atelectatic changes. Cardiac size is difficult to evaluate secondary to obscuration of the right heart border from pleural fluid and atelectasis. No pneumothorax. RAD/Chest PA and Lateral IMPRESSION: No significant change. Bilateral pleural effusions, moderate to large on the right and small on the left with bilateral atelectatic changes, worse on the right. at 0715 Reported and signed by: Stefan Eric MD Electronically Signed: Stefan Eric, at 7:14 EDT Tel , Service support ,
[2019-02-20 06:25] LABS: Hemoglobin 16.6 g/dL (12.0-15.0); Mean Corp Hgb Conc 31.9 g/dL (32-36); Mean Corpuscular Hgb 31.6 pg (27.0-32.0); Mean Platelet Vol. 10.1 fl (6.2-12.0); Platelet Count 172 K/mm3 (150-450); RBC Distribution Width CV 13.7 % (11.6-14.6); RBC Distribution Width SD 50.3 fl (35.1-43.9); Red Blood Count 5.25 M/mm3 (4.2-5.4)
[2019-02-20] MEDS: Ipratropium/Albuterol Sulfate 3 ML AMPUL.NEB INHALATION ×4 (06:57→18:43)
[2019-02-20 06:59] LABS: Anion Gap 2 (5-15); BUN 6 mg/dL (7-18); BUN/Creat Ratio 10.6 RATIO (10-20); Chloride 94 mmol/L (98-107); Creatinine, Serum 0.57 mg/dL (0.55-1.02); EST Glomerular Filtration Rate 117 mL/min (>60); Est Glom Filt Rate - Afr Amer 142 mL/min (>60); Estimated Creatinine Clearance 92.25 ml/min; Glucose 78 mg/dL (74-106); Potassium 3.6 mmol/L (3.5-5.1); Sodium Level 140 mmol/L (136-145)
--- NOTE | 2019-02-20 09:16 | NURSING ---
ECHO IN PROGRESS
--- NOTE | 2019-02-20 10:29 | PCM.PN.PUL ---
Subjective: Patient did okay overnight. No acute issues were reported. Patient feels subjectively improved compared to previous, but is still requiring 5 L nasal cannula to maintain saturations. Patient did wear BiPAP overnight. Patient does report some cough with deep inhalation. No fevers have been reported. Patient did report to me that her lower extremities have been swelling for the last 2 to 3 months, but previously would only swell when I was standing a lot. - Physical Exam Vitals/I&O's: Vital Signs Temp Pulse Resp BP Pulse Ox 36.9 C 90 22 H 104/70 90 02/20/19 08:45 02/20/19 08:45 02/20/19 08:45 02/20/19 08:45 02/20/19 08:45 Oxygen Flow Rate (L/min) 5 Oxygen Delivery Method Nasal Cannula Weight: 89.7 kg Body Mass Index (BMI) 35.2 Intake and Output for Last 24 Hours 02/18/19 02/19/19 02/20/19 23:59 23:59 23:59 Intake Total 360 / 360 1130 / 1130 Output Total 2850 / 2850 2600 / 2600 Balance -2490 / -2490 -1470 / -1470 General: Alert, Oriented x3, Cooperative, No apparent distress, - - No conversational dyspnea. Obese. HEENT: Atraumatic, PERRLA, EOMI, Normocephalic, - - No scleral icterus or injection noted Oral: Moist Mucosa, No Gingival or Mucosal Lesions/ Ulcerations Neck: Supple, No JVD, No Nodes, Trachea Midline Lungs: No rhonchi, No rales, Diminished - Right greater than left base, Wheezes - Sporadic, - - Dullness to percussion at the right base Cardiovascular: Regular rate, Regular Rhythm, Normal S1, Normal S2, No murmurs, No rub noted, No Gallop Abdomen: Bowel Sounds Present, Soft, Non Tender, Non-Distended, Obese Extremities: No clubbing, No cyanosis, Capillary Refill Less than 3 Seconds, Edema - 4+ bilateral Skin: No rashes, No breakdown Musculoskeletal: No Tenderness to Palpation of Joints or Extremities Lymphatic: No Cervical, Supraclavicular, or Inguinal Adenopathy Neurological: Cranial nerves II-XII grossly intact, Neuro grossly intact, Motor Exam 5/5 strength throughout Psych/Mental Status: Alert and oriented to time, place, person, mood and affect Laboratory Results - last 24 hr 02/20/19 02/20/19 06:05 06:05 WBC 9.0 RBC 5.25 Hgb 16.6 H Hct 52.0 H MCV 99.0 MCH 31.6 MCHC 31.9 L RDW Std Deviation 50.3 H RDW Coeff of Charles 13.7 Plt Count 172 MPV 10.1 Sodium 140 Potassium 3.6 Chloride 94 L Carbon Dioxide 44.0 H Anion Gap 2 L BUN 6 L Creatinine 0.57 Estim Creat Clear Calc 92.25 Est GFR (MDRD) Af Amer 142 Est GFR (MDRD) Non-Af 117 BUN/Creatinine Ratio 10.6 Glucose 78 Calcium 8.0 L Clinical Impression(s) from Imaging Studies Chest X-Ray 02/20/19 05:55 IMPRESSION: No significant change. Bilateral pleural effusions, moderate to large on the right and small on the left with bilateral atelectatic changes, worse on the right. at 0715 Reported and signed by: Stefan Eric MD Electronically Signed: Stefan Eric, at 7:14 EDT Tel , Service support , Current Medications Albuterol/Ipratropium (Duoneb) 3 ml INHALATION Q4HWA.RT [facility] Last Admin: 02/20/19 06:57 Dose: 3 ml Documented by: Aspirin (Ecotrin) 81 mg PO DAILY@0800 [facility] Last Admin: 02/19/19 08:05 Dose: 81 mg Documented by: Dextrose (D50w Syringe) 0 gm IV X1 PRN; Protocol PRN Reason: Hypoglycemia Enoxaparin Sodium (Lovenox) 40 mg SC DAILY@1000 [facility] Last Admin: 02/19/19 09:02 Dose: 40 mg Documented by: Furosemide (Lasix) 40 mg IV BIDLX [facility] Last Admin: 02/19/19 17:13 Dose: 40 mg Documented by: Glucagon () 1 mg IM .X1 PRN PRN Reason: Hypoglycemia Lisinopril (Zestril) 10 mg PO DAILY [facility] Last Admin: 02/19/19 09:02 Dose: 10 mg Documented by: Prednisone () 40 mg PO DAILY@0800 [facility] Last Admin: 02/19/19 09:02 Dose: 40 mg Documented by: Sodium Chloride () 10 - 40 ml IV UD PRN PRN Reason: SALINE FLUSH Last Admin: 02/20/19 03:50 Dose: 10 ml Documented by: Medical Necessity - Tobacco Use Smoking Status: Heavy Smoker (>10/day) Tobacco Use: Cigarettes Assessment/Plan RECOMMENDATIONS: 1. Continue scheduled IV Lasix. 2. Await results of surface echocardiogram. 3. May need to consider inpatient cardiology consultation to assist with heart failure management. 4. Continue BiPAP therapy with naps and nightly at a minimum. BiPAP rescue if indicated during the day 5. Maintain oxygen saturations 88 to 92% to prevent paradoxical CO2 retention. 6. Continue scheduled DuoNeb while awake and prednisone 40 mg daily. 7. Recommend outpatient pulmonary follow-up within 2 weeks of discharge. IMPRESSIONS: 1. Acute combined respiratory failure Clinical suspicion for multifactorial etiology. Patient likely has relatively significant COPD secondary to smoking history. Given lower extremity edema, pleural effusions and ascites, concern for right heart failure would also be suggested. Patient has polycythemia indicating prolonged hypoxemia as an outpatient. Patient is receiving IV diuretic therapy and is diuresing appropriately. Continue with prednisone therapy as patient likely has an element of obstruction. Patient does not have any leukocytosis or fevers to suggest acute infection. She does have an echocardiogram scheduled for today. 2. Polycythemia Suspect this may be secondary to hypoxemia on her home environment, given the patient's prolonged smoking history. It is highly possible that she may require supplemental O2 upon discharge from the hospital. 3. Chronic alcohol and tobacco dependency The patient reports that she has been abstinent from alcohol consumption now for 1 month. However, prior to this, she was a heavy drinker. Recent CT abdomen showed no radiographic evidence of cirrhosis. Ascites may be secondary to right heart failure. Echocardiogram is currently pending. Patient is a current daily smoker. Nicotine replacement therapy can be offered to her while admitted to the hospital. I would recommend outpatient pulmonary follow-up upon discharge. Code Visit Inpatient E&M: [id number] [facility] Hosp L3
[2019-02-20] MEDS: Aspirin E.C. 81 MG Tablet PO (10:31)
[2019-02-20] MEDS: predniSONE 20 MG Tablet 40 MG PO (10:31)
[2019-02-20] MEDS: Enoxaparin 40 MG/0.4 ML Syringe SC (10:32)
[2019-02-20] MEDS: Lisinopril 10 MG Tablet PO (10:33)
[2019-02-20] MEDS: Furosemide 40 MG/4 ML Vial IV ×3 (10:40→22:37)
--- NOTE | 2019-02-20 11:28 | PCM.PROGNOTE ---
Subjective: Patient seen and examined. Reports continued improvement in shortness of breath. Lower extremity and abdominal swelling improving as well. Patient denies current complaints. - Physical Exam Vitals/I&O's: Vital Signs Temp Pulse Resp BP Pulse Ox 98.5 F 90 22 H 104/70 90 02/20/19 08:45 02/20/19 08:45 02/20/19 08:45 02/20/19 08:45 02/20/19 08:45 Oxygen Flow Rate (L/min) 5 Oxygen Delivery Method Nasal Cannula Weight: 197 lb 12.074 oz Body Mass Index (BMI) 35.2 Intake and Output for Last 24 Hours 02/18/19 02/19/19 02/20/19 23:59 23:59 23:59 Intake Total 360 / 360 1130 / 1130 Output Total 2850 / 2850 2600 / 2600 Balance -2490 / -2490 -1470 / -1470 General: Alert, Oriented x3, Cooperative HEENT: Atraumatic, PERRLA, EOMI, Normocephalic Neck: Supple, No JVD, Negative Carotid Bruits Lungs: Clear to auscultation, Diminished Cardiovascular: Regular rate, Regular Rhythm, Normal S1, Normal S2, No murmurs Abdomen: Bowel Sounds Present, Soft, Non Tender, Non-Distended Extremities: No clubbing, No cyanosis, Capillary Refill Less than 3 Seconds, Edema - Bilateral lower extremities Skin: - - Chronic skin changes bilateral lower extremities with hyperpigmentation Musculoskeletal: No Tenderness to Palpation of Joints or Extremities Neurological: Cranial nerves II-XII grossly intact, Neuro grossly intact Psych/Mental Status: Normal Affect, Appropriate Laboratory Results 02/20/19 06:05: WBC 9.0, RBC 5.25, Hgb 16.6 H, Hct 52.0 H, MCV 99.0, MCH 31.6, MCHC 31.9 L, RDW Std Deviation 50.3 H, RDW Coeff of Charles 13.7, Plt Count 172, MPV 10.1 02/20/19 06:05: Sodium 140, Potassium 3.6, Chloride 94 L, Carbon Dioxide 44.0 H, Anion Gap 2 L, BUN 6 L, Creatinine 0.57, Estim Creat Clear Calc 92.25, Est GFR (MDRD) Af Amer 142, Est GFR (MDRD) Non-Af 117, BUN/Creatinine Ratio 10.6, Glucose 78, Calcium 8.0 L Current Medications Albuterol/Ipratropium (Duoneb) 3 ml INHALATION Q4HWA.RT [facility] Last Admin: 02/20/19 11:23 Dose: 3 ml Documented by: Aspirin (Ecotrin) 81 mg PO DAILY@0800 [facility] Last Admin: 02/20/19 10:31 Dose: 81 mg Documented by: Dextrose (D50w Syringe) 0 gm IV X1 PRN; Protocol PRN Reason: Hypoglycemia Enoxaparin Sodium (Lovenox) 40 mg SC DAILY@1000 [facility] Last Admin: 02/20/19 10:32 Dose: 40 mg Documented by: Furosemide (Lasix) 40 mg IV BIDLX [facility] Last Admin: 02/20/19 10:40 Dose: 40 mg Documented by: Glucagon () 1 mg IM .X1 PRN PRN Reason: Hypoglycemia Lisinopril (Zestril) 10 mg PO DAILY [facility] Last Admin: 02/20/19 10:33 Dose: 10 mg Documented by: Prednisone () 40 mg PO DAILY@0800 [facility] Last Admin: 02/20/19 10:31 Dose: 40 mg Documented by: Sodium Chloride () 10 - 40 ml IV UD PRN PRN Reason: SALINE FLUSH Last Admin: 02/20/19 03:50 Dose: 10 ml Documented by: Medical Necessity - Tobacco Use Smoking Status: Heavy Smoker (>10/day) Tobacco Use: Cigarettes Assessment/Plan 1. Acute hypoxic respiratory failure secondary to CHF with large right pleural effusion-continue supplement oxygen to maintain O2 at or above 90%. Pulmonary medicine consulted. Walking pulse ox prior to discharge. Outpatient follow-up with pulmonary medicine. Continue BiPAP as needed. 2. New onset CHF, right pleural effusion-unclear subtype. Patient reports approximate 30 pound weight gain. Continue IV Lasix 40 mg twice daily. Strict I&O. Daily weight. Juan Luis wraps bilateral lower extremities. Echocardiogram ordered. Pending results, possible cardiology consult. 3. Polycythemia-suspect secondary polycythemia as a result of hypoxemia/long-term smoking history. 4. Chronic alcohol lptao-nlex-mhum alcohol use, quit approximately 1 month ago. 5. Tobacco dependence-encourage cessation. DVT prophylaxis- Lovenox sc This patient was seen by LUKE Carroll under the supervision of Dr. Hernandez.
--- NOTE | 2019-02-20 12:54 | CASEMGMT ---
RN CM Assessment Introduced role of RN CM to patient, patient lis Gibbons and patient mother at bedside.? Patient is alert, oriented and able?to participate in RN CM Assessment. ?Patient consents for this health science writer to speak in families presence. Care providers, pharmacy, and demographics verified. Presentation: C/o SOB- comes and goes last 2+ months and swelling of abdomen and LE. Admit Dx: Acute Hypoxic Respiratory Failure Re-Admit: No Barriers/Issues: Patient states that she used to work up until about 3.5yrs ago, does not have health insurance, PCP, or Medication coverage. This health science writer discussed NATHANIEL and services if qualifies and provided contact information, discussed and given resources to [facility]. Given Prescription discount cards, and SW rack card in case decides to come back as an outpatient to complete advanced directives. Provided a list of PCP. PCP: None Specialists: None Preferred Pharmacy: None at this time as she does not currently have Rx benefits and would have to shop via coupon card for medication assistance. Insurance: None Rx Benefit: None? LNOK: Shai Chambers LW/HPOA: None, States has information. Declines offered information or services on this admission. Aware can come as an outpatient to complete with dept. Living Arrangements:? Lives with her in a 2 story home, LL set up. 2 steps to enter home ADL?s: Independent with ambulation and ADLs Transportation: Both patient and drive DME: None HHC: None SNF: None Goal: Home and does not think will have any needs. Patient currently on O2 here at hospital- per patient states MOD states goal is to get patient off O2 prior to DC and heart looks good but will likely be Dc'd on oral diuretic. Denies any other issues/concerns/or questions with DC planning at this time. Aware CM remains available for any emerging needs. DC PLAN: Home and possible medication assistance, CM to follow O2 sat for possible Oxygen needs. FRANTZ Hanley
[2019-02-21] VITALS (19 sets, daily range): BP systolic 116–132; BP diastolic 70–88; PULSE 73–102; RESP 14–23; TEMP 36.6–36.9; O2SAT 82–98
[2019-02-21 05:26] LABS: Hemoglobin 16.7 g/dL (12.0-15.0); Mean Corp Hgb Conc 32.1 g/dL (32-36); Mean Corpuscular Hgb 31.6 pg (27.0-32.0); Mean Corpuscular Volume 98.5 fL (81-99); Mean Platelet Vol. 10.2 fl (6.2-12.0); Platelet Count 181 K/mm3 (150-450); RBC Distribution Width CV 13.8 % (11.6-14.6); RBC Distribution Width SD 49.8 fl (35.1-43.9); Red Blood Count 5.28 M/mm3 (4.2-5.4); White Blood Count 8.9 K/mm3 (4.4-11.0)
[2019-02-21 05:38] LABS: BUN 8 mg/dL (7-18); BUN/Creat Ratio 13.2 RATIO (10-20); Calcium,Total 8.2 mg/dL (8.5-10.1); Chloride 93 mmol/L (98-107); EST Glomerular Filtration Rate 109 mL/min (>60); Est Glom Filt Rate - Afr Amer 132 mL/min (>60); Estimated Creatinine Clearance 87.64 ml/min; Glucose 76 mg/dL (74-106); Magnesium 1.8 mg/dL (1.6-2.6); Potassium 3.5 mmol/L (3.5-5.1); Sodium Level 141 mmol/L (136-145)
[2019-02-21 05:40] LABS: Carbon Dioxide > 45.0 mmol/L (21.0-32.0)
--- NOTE | 2019-02-21 05:40 | NURSING ---
Pts primary rn aware of pt co2 level being greater than 45.
[2019-02-21] MEDS: Ipratropium/Albuterol Sulfate 3 ML AMPUL.NEB INHALATION ×4 (07:03→19:03)
[2019-02-21] MEDS: Furosemide 40 MG/4 ML Vial IV ×2 (07:19→22:10)
[2019-02-21] MEDS: 0.9% Saline Lock 10 ML Syringe IV ×2 (07:19→22:10)
--- NOTE | 2019-02-21 08:42 | RAD_ITS ---
STUDY: X-RAY CHEST REASON FOR EXAM: Female, 53 years old. Shortness of breath/dyspnea. TECHNIQUE: PA and lateral views of the chest. COMPARISON: Comparison is made with prior study February 12, 2019. FINDINGS: EKG electrodes are seen. Since prior study, there has been a slight increase in the right pleural effusion with bibasilar infiltration and/or atelectasis. Stable pleural parenchymal changes at the left lung base. Normal size heart. Normal mediastinum and jammie. Normal visualized pulmonary arteries. Normal visualized aortic arch and descending thoracic aorta. Normal visualized thoracic spine. Normal visualized ribs, clavicles, and shoulders. There is no demonstrated abnormality of the visualized soft tissue structures of the upper abdomen. RAD/Chest PA and Lateral IMPRESSION: Slight increase in size of the right pleural effusion. The remainder of the examination is unchanged. Electronically Signed: Abner Santana, at 15:35 EDT , Service support ,
--- NOTE | 2019-02-21 09:44 | PN_ITS ---
Subjective: She did okay overnight. Patient is reporting subjective improvement in dyspnea. Patient feels that her edema is improving on current therapy. Objective: Echocardiogram shows an EF of 55% with stage I diastolic dysfunction, moderately dilated RV with mild global RV dysfunction. Pulmonary artery systolic pressure is elevated at 48 mmHg. - Physical Exam Vitals/I&O's: Vital Signs Temp Pulse Resp BP Pulse Ox 36.8 C 90 20 H 121/71 H 98 02/21/19 04:30 02/21/19 07:04 02/21/19 07:04 02/21/19 07:17 02/21/19 07:06 Oxygen Flow Rate (L/min) 4 Oxygen Delivery Method Nasal Cannula Weight: 86.1 kg Body Mass Index (BMI) 35.2 Intake and Output for Last 24 Hours 02/19/19 02/20/19 02/21/19 23:59 23:59 23:59 Intake Total 1130 / 1130 1160 / 1160 30 / 30 Output Total 2600 / 2600 4350 / 4350 1400 / 1400 Balance -1470 / -1470 -3190 / -3190 -1370 / -1370 General: Alert, Oriented x3, Cooperative, No apparent distress, - - Appears older than stated age. Obese. No conversational dyspnea. HEENT: Atraumatic, PERRLA, EOMI, Normocephalic, - - No scleral icterus or injection noted Oral: Moist Mucosa, No Gingival or Mucosal Lesions/ Ulcerations Neck: Supple, No JVD, No Nodes Lungs: No rhonchi, No wheeze, No rales, Diminished Cardiovascular: Regular rate, Regular Rhythm, Normal S1, Normal S2, No murmurs, No rub noted, No Gallop Abdomen: Bowel Sounds Present, Soft, Non Tender, Non-Distended, Obese Extremities: No clubbing, No cyanosis, Edema - Improving Skin: - - No significant change compared to previous Musculoskeletal: No Tenderness to Palpation of Joints or Extremities Lymphatic: No Cervical, Supraclavicular, or Inguinal Adenopathy Neurological: Cranial nerves II-XII grossly intact, Neuro grossly intact, Motor Exam 5/5 strength throughout Psych/Mental Status: Alert and oriented to time, place, person, mood and affect Laboratory Results - last 24 hr 02/21/19 02/21/19 05:16 05:16 WBC 8.9 RBC 5.28 Hgb 16.7 H Hct 52.0 H MCV 98.5 MCH 31.6 MCHC 32.1 RDW Std Deviation 49.8 H RDW Coeff of Charles 13.8 Plt Count 181 MPV 10.2 Sodium 141 Potassium 3.5 Chloride 93 L Carbon Dioxide > 45.0 H* Anion Gap TNP BUN 8 Creatinine 0.60 Estim Creat Clear Calc 87.64 Est GFR (MDRD) Af Amer 132 Est GFR (MDRD) Non-Af 109 BUN/Creatinine Ratio 13.2 Glucose 76 Calcium 8.2 L Magnesium 1.8 Current Medications Albuterol/Ipratropium (Duoneb) 3 ml INHALATION Q4HWA.RT [facility] Last Admin: 02/21/19 07:03 Dose: 3 ml Documented by: Aspirin (Ecotrin) 81 mg PO DAILY@0800 [facility] Last Admin: 02/20/19 10:31 Dose: 81 mg Documented by: Dextrose (D50w Syringe) 0 gm IV X1 PRN; Protocol PRN Reason: Hypoglycemia Enoxaparin Sodium (Lovenox) 40 mg SC DAILY@1000 [facility] Last Admin: 02/20/19 10:32 Dose: 40 mg Documented by: Furosemide (Lasix) 40 mg IV BID [facility] Glucagon () 1 mg IM .X1 PRN PRN Reason: Hypoglycemia Lisinopril (Zestril) 10 mg PO DAILY [facility] Last Admin: 02/20/19 10:33 Dose: 10 mg Documented by: Prednisone () 40 mg PO DAILY@0800 [facility] Last Admin: 02/20/19 10:31 Dose: 40 mg Documented by: Sodium Chloride () 10 - 40 ml IV UD PRN PRN Reason: SALINE FLUSH Last Admin: 02/21/19 07:19 Dose: 20 ml Documented by: Medical Necessity - Tobacco Use Smoking Status: Heavy Smoker (>10/day) Tobacco Use: Cigarettes Assessment/Plan RECOMMENDATIONS: 1. Likely okay to continue IV Lasix for another 24 hours 2. We will have to reassess echocardiogram after compliance with supplemental oxygen for 3 to 6 months 3. Will need to ambulate on 6 L or less to be discharged 4. Continue BiPAP therapy with naps and nightly at a minimum. BiPAP rescue if indicated during the day 5. Maintain oxygen saturations 88 to 92% to prevent paradoxical CO2 retention. 6. Continue scheduled DuoNeb while awake and prednisone 40 mg daily. Wean prednisone over 12 to 14 days 7. Recommend outpatient pulmonary follow-up within 2 weeks of discharge. IMPRESSIONS: 1. Acute combined respiratory failure Clinical suspicion for multifactorial etiology. Patient likely has relatively significant COPD secondary to smoking history. Given lower extremity edema, pleural effusions and ascites, concern for right heart failure would also be suggested. Patient has polycythemia indicating prolonged hypoxemia as an outpatient. Patient is receiving IV diuretic therapy and is diuresing appropriately. Patient is having some improvement with diuretic therapy. Echocardiogram is suggestive of cor pulmonale, but anticipate this is secondary to prolonged hypoxemia. Will attempt to address hypoxemia and then readdress with echo in the future. Prednisone can likely be weaned over the next 12 to 14 days. Still clinically suspicious the patient will require supplemental oxygen on discharge. 2. Polycythemia Suspect this may be secondary to hypoxemia on her home environment, given the patient's prolonged smoking history. It is highly possible that she may require supplemental O2 upon discharge from the hospital. 3. Chronic alcohol and tobacco dependency The patient reports that she has been abstinent from alcohol consumption now for 1 month. However, prior to this, she was a heavy drinker. Recent CT abdomen showed no radiographic evidence of cirrhosis. Ascites may be secondary to right heart failure. Patient reports she has quit smoking. Nicotine replacement therapy can be offered to her while admitted to the hospital. I would recommend outpatient pulmonary follow-up upon discharge. Code Visit Inpatient E&M: [id number] [facility] Hosp L3
[2019-02-21] MEDS: Enoxaparin 40 MG/0.4 ML Syringe SC (09:58)
[2019-02-21] MEDS: predniSONE 20 MG Tablet 40 MG PO (09:58)
[2019-02-21] MEDS: Aspirin E.C. 81 MG Tablet PO (09:58)
[2019-02-21] MEDS: Lisinopril 10 MG Tablet PO (09:58)
[2019-02-21 12:31] LABS: International Normalized Ratio 1.1; Prothrombin Time (Protime)PT. 14.1 SECONDS (11.7-14.9)
[2019-02-21 12:32] LABS: Partial Thromboplast Time 23.3 Seconds (24.1-36.2)
--- NOTE | 2019-02-21 14:03 | PCM.PROGNOTE ---
Subjective: Patient seen and examined. Reports shortness of breath is improved however requiring 8 L nasal cannula with ambulation. Thoracentesis ordered. - Physical Exam Vitals/I&O's: Vital Signs Temp Pulse Resp BP Pulse Ox 98.3 F 79 16 118/74 92 02/21/19 09:55 02/21/19 10:59 02/21/19 10:59 02/21/19 09:55 02/21/19 11:42 Oxygen Flow Rate (L/min) [ 8 AMBULATION with Oxygen] Oxygen Flow Rate (L/min) 4 Oxygen Delivery Method Nasal Cannula Weight: 189 lb 13.088 oz Body Mass Index (BMI) 35.2 Intake and Output for Last 24 Hours 02/19/19 02/20/19 02/21/19 23:59 23:59 23:59 Intake Total 1130 / 1130 1160 / 1160 390 / 390 Output Total 2600 / 2600 4350 / 4350 3300 / 3300 Balance -1470 / -1470 -3190 / -3190 -2910 / -2910 General: Alert, Oriented x3, Cooperative HEENT: Atraumatic, PERRLA, EOMI, Normocephalic Neck: Supple, No JVD, Negative Carotid Bruits Lungs: Clear to auscultation, Diminished Cardiovascular: Regular rate, Regular Rhythm, Normal S1, Normal S2, No murmurs Abdomen: Bowel Sounds Present, Soft, Non Tender, Non-Distended Extremities: No clubbing, No cyanosis, Capillary Refill Less than 3 Seconds, Edema - Bilateral lower extremities, improved Skin: No rashes, No breakdown, - - Chronic skin changes bilateral lower extremities with hyperpigmentation Musculoskeletal: No Tenderness to Palpation of Joints or Extremities Neurological: Cranial nerves II-XII grossly intact, Neuro grossly intact Psych/Mental Status: Normal Affect, Appropriate Laboratory Results 02/21/19 05:16: WBC 8.9, RBC 5.28, Hgb 16.7 H, Hct 52.0 H, MCV 98.5, MCH 31.6, MCHC 32.1, RDW Std Deviation 49.8 H, RDW Coeff of Charles 13.8, Plt Count 181, MPV 10.2 02/21/19 05:16: Sodium 141, Potassium 3.5, Chloride 93 L, Carbon Dioxide > 45.0 H*, Anion Gap TNP, BUN 8, Creatinine 0.60, Estim Creat Clear Calc 87.64, Est GFR (MDRD) Af Amer 132, Est GFR (MDRD) Non-Af 109, BUN/Creatinine Ratio 13.2, Glucose 76, Calcium 8.2 L, Magnesium 1.8 02/21/19 11:55: PT 14.1, INR 1.1, APTT 23.3 L Current Medications Albuterol/Ipratropium (Duoneb) 3 ml INHALATION Q4HWA.RT [facility] Last Admin: 02/21/19 10:59 Dose: 3 ml Documented by: Aspirin (Ecotrin) 81 mg PO DAILY@0800 [facility] Last Admin: 02/21/19 09:58 Dose: 81 mg Documented by: Dextrose (D50w Syringe) 0 gm IV X1 PRN; Protocol PRN Reason: Hypoglycemia Enoxaparin Sodium (Lovenox) 40 mg SC DAILY@1000 [facility] Last Admin: 02/21/19 09:58 Dose: 40 mg Documented by: Furosemide (Lasix) 40 mg IV BID [facility] Glucagon () 1 mg IM .X1 PRN PRN Reason: Hypoglycemia Lisinopril (Zestril) 10 mg PO DAILY [facility] Last Admin: 02/21/19 09:58 Dose: 10 mg Documented by: Prednisone () 40 mg PO DAILY@0800 [facility] Last Admin: 02/21/19 09:58 Dose: 40 mg Documented by: Sodium Chloride () 10 - 40 ml IV UD PRN PRN Reason: SALINE FLUSH Last Admin: 02/21/19 07:19 Dose: 20 ml Documented by: Medical Necessity - Tobacco Use Smoking Status: Heavy Smoker (>10/day) Tobacco Use: Cigarettes Assessment/Plan 1. Acute hypoxic respiratory failure secondary to CHF with large right pleural effusion-continue supplement oxygen to maintain O2 at or above 90%. Pulmonary medicine consulted. Walking pulse ox prior to discharge. Outpatient follow-up with pulmonary medicine. Continue BiPAP as needed. 2. Acute diastolic CHF, right pleural effusion-Patient reports approximate 30 pound weight gain. Continue IV Lasix 40 mg twice daily. Strict I&O. Daily weight. Juan Luis wraps bilateral lower extremities. Echocardiogram demonstrates an EF of 55%, stage I diastolic dysfunction, pulmonary artery systolic pressure 48 mmHg. Small pericardial effusion. Patient continues to have large right pleural effusion. Thoracentesis ordered along with diagnostic labs. 3. Polycythemia-suspect secondary polycythemia as a result of hypoxemia/long-term smoking history. 4. Chronic alcohol [id number] alcohol use, quit approximately 1 month ago. 5. Tobacco dependence-encourage cessation. DVT prophylaxis- Lovenox sc This patient was seen by LUKE Carroll under the supervision of Dr. Hernandez.
[2019-02-21 15:04] LABS: ALB/GLOB Ratio 0.9 RATIO (0.9-2.4); LDH 180 U/L (84-246); Protein, Total 5.6 g/dL (6.4-8.2)
[2019-02-22] VITALS (13 sets, daily range): BP systolic 117–148; BP diastolic 64–89; PULSE 64–92; RESP 14–20; TEMP 36.4–36.6; O2SAT 80–98
--- NOTE | 2019-02-22 | FLU_PTH ---
PATIENT: DELL MATT LOC: [facility] U#:[id number] AGE/SX: 53/F ROOM: [facility] RE02/18/[address]: Dr. Thomas Hernandez DO : 1965 BED: 1 DIS: 02/22/2019 SPEC #: [id number] RECD: 02/22/19 10:23 STATUS: PROSPER REQ #: [id number] KENDALL: 02/22/19 00:[address]: Thomas Hernandez DEPT: CYTOLOGY RECD BY: Hong Johnson ENTERED: 02/22/19 11:47 SP TYPE: Fluid OTHR DR: DO Dr. Darline Munoz MD No Primary Care Phys Tissues: THORACIC FLUID Procedures: Special Stain Group II Surgery Specimen Level IV Cytospin Fluid HEADER OPERATION: Ultrasound guided right thoracentesis PRE-OP DIAGNOSIS: Acute hypoxic respiratory failure TISSUE SUBMITTED: Thoracentesis fluid for cytology DIAGNOSIS CYTOLOGY Thoracentesis fluid for cytology (cytospin and cell block): Negative for malignant cells. See comment. SJ:rg 02/23/19 COMMENT Clinical correlation and appropriate follow up are necessary. CYTOLOGY STUDY Slides are reviewed. CYTOLOGY GROSS Received is 100 ml of yellow cloudy fluid labeled with the patient's name and and designated per the requisition as thoracentesis. Submitted for cytology preparation including cell block. /CC:cc 02/22/19 TC:5 CPT: 08644
[2019-02-22 05:42] LABS: Hematocrit 50.8 % (37-47); Hemoglobin 16.6 g/dL (12.0-15.0); Mean Corp Hgb Conc 32.7 g/dL (32-36); Mean Corpuscular Hgb 31.7 pg (27.0-32.0); Mean Corpuscular Volume 97.1 fL (81-99); Mean Platelet Vol. 9.9 fl (6.2-12.0); Platelet Count 170 K/mm3 (150-450); RBC Distribution Width SD 49.7 fl (35.1-43.9); Red Blood Count 5.23 M/mm3 (4.2-5.4); White Blood Count 7.9 K/mm3 (4.4-11.0)
[2019-02-22 06:39] LABS: BUN 10 mg/dL (7-18); BUN/Creat Ratio 18.4 RATIO (10-20); Calcium,Total 8.3 mg/dL (8.5-10.1); Carbon Dioxide > 45.0 mmol/L (21.0-32.0); Chloride 91 mmol/L (98-107); Creatinine, Serum 0.54 mg/dL (0.55-1.02); EST Glomerular Filtration Rate 123 mL/min (>60); Est Glom Filt Rate - Afr Amer 149 mL/min (>60); Estimated Creatinine Clearance 97.37 ml/min; Glucose 70 mg/dL (74-106); Potassium 3.4 mmol/L (3.5-5.1); Sodium Level 141 mmol/L (136-145)
[2019-02-22] MEDS: Ipratropium/Albuterol Sulfate 3 ML AMPUL.NEB INHALATION ×3 (07:33→15:12)
[2019-02-22 08:06] LABS: International Normalized Ratio 1.1; Prothrombin Time (Protime)PT. 13.9 SECONDS (11.7-14.9)
[2019-02-22 08:07] LABS: Partial Thromboplast Time 26.1 Seconds (24.1-36.2)
--- NOTE | 2019-02-22 09:30 | US_ITS ---
PROCEDURE: ULTRASOUND GUIDED THORACENTESIS. DATE: February 22, 2019. INDICATION: Female, 53 years old. Right pleural effusion. PHYSICIAN: Abner Santana M.D. PROCEDURE: The risks, benefits, and alternatives to the procedure were explained to the patient. The specific risks of bleeding, infection, and pneumothorax requiring chest tube insertion were discussed and accepted. Written informed consent was obtained. Ultrasonographic evaluation of the right lower pleural space was carried out. An adequate pocket was identified. The patient was placed in the sitting, upright position. The overlying skin was prepped and draped in sterile fashion. 1% lidocaine was administered subcutaneously for local anesthesia. Under ultrasound guidance, a 5 Lao thoracentesis needle/catheter system was advanced into the right posterior lower pleural fluid collection. Approximately 1170 mL of estuardo-colored fluid fluid was drained. The catheter was removed, and a sterile dressing was applied. A 120 mL specimen was collected and sent to the laboratory for analysis, as requested by the referring clinician. The patient tolerated the procedure well. A chest x-ray was ordered. US/Thoracentesis W US IMPRESSION: Ultrasound-guided right thoracentesis. Electronically Signed: Abner Santana, at 12:36 EDT , Service support ,
--- NOTE | 2019-02-22 10:17 | RAD_ITS ---
STUDY: X-RAY CHEST REASON FOR EXAM: Female, 53 years old. Status post right thoracentesis. TECHNIQUE: AP inspiration and expiration views. COMPARISON: Comparison is made with prior study dated February 21, 2019. FINDINGS: EKG lead which are seen. The patient is status post right thoracentesis. There is no evidence of pneumothorax. Residual blunting of the right costo phrenic angle. Stable pleural parenchymal changes at the left lung base. RAD/Chest Insp/Exp 2 View IMPRESSION: Status post right thoracentesis. No evidence of pneumothorax. Electronically Signed: Abner Santana, at 14:09 EDT , Service support ,
[2019-02-22 10:34] LABS: Cytology, Body Fluid / CSF SEE PATHOLOGY REPORT
--- NOTE | 2019-02-22 10:54 | PN_ITS ---
Subjective: Patient did well overnight. Patient continues to report subjective improvement in lower extremity edema and breathlessness. Patient was seen just after thoracentesis and reportedly had approximately 1 L removed. Patient states this made a significant improvement in her dyspnea, but occasionally he will cough if I take a deep breath. - Physical Exam Vitals/I&O's: Vital Signs Temp Pulse Resp BP Pulse Ox 36.4 C L 89 20 H 117/65 95 02/22/19 04:00 02/22/19 07:33 02/22/19 07:33 02/22/19 04:00 02/22/19 07:33 Oxygen Flow Rate (L/min) [ 8 AMBULATION with Oxygen] Oxygen Flow Rate (L/min) 4 Oxygen Delivery Method Nasal Cannula Weight: 84.2 kg Body Mass Index (BMI) 35.2 Intake and Output for Last 24 Hours 02/20/19 02/21/19 02/22/19 23:59 23:59 23:59 Intake Total 1160 / 1160 1050 / 1050 60 / 60 Output Total 4350 / 4350 4950 / 4950 1000 / 1000 Balance -3190 / -3190 -3900 / -3900 -940 / -940 General: Alert, Oriented x3, Cooperative, No apparent distress, Well developed, Well nourished, - - No conversational dyspnea HEENT: Atraumatic, PERRLA, EOMI, Normocephalic, - - No scleral icterus or injection noted Oral: Moist Mucosa, No Gingival or Mucosal Lesions/ Ulcerations Neck: Supple, No JVD, No Nodes, Trachea Midline Lungs: No rhonchi, No wheeze, No rales, Diminished, - - Symmetric expansion. Better air exchange at the right base Cardiovascular: Regular rate, Regular Rhythm, Normal S1, Normal S2, No murmurs, No rub noted, No Gallop Abdomen: Bowel Sounds Present, Soft, Non Tender, Non-Distended Extremities: No clubbing, No cyanosis, Edema - Improving, but still 4+ lower extremities Skin: - - Venous stasis changes of the lower extremities Musculoskeletal: No Tenderness to Palpation of Joints or Extremities Lymphatic: No Cervical, Supraclavicular, or Inguinal Adenopathy Neurological: Cranial nerves II-XII grossly intact, Neuro grossly intact, Motor Exam 5/5 strength throughout Psych/Mental Status: Alert and oriented to time, place, person, mood and affect Laboratory Results 02/21/19 05:16: Lactate Dehydrogenase 180, Total Protein 5.6 L, Globulin 3.0, Albumin/Globulin Ratio 0.9 02/21/19 11:55: PT 14.1, INR 1.1, APTT 23.3 L 02/22/19 05:35: WBC 7.9, RBC 5.23, Hgb 16.6 H, Hct 50.8 H, MCV 97.1, MCH 31.7, MCHC 32.7, RDW Std Deviation 49.7 H, RDW Coeff of Charles 14.0, Plt Count 170, MPV 9 .9 02/22/19 05:35: Sodium 141, Potassium 3.4 L, Chloride 91 L, Carbon Dioxide > 45.0 H*, Anion Gap TNP, BUN 10, Creatinine 0.54 L, Estim Creat Clear Calc 97.37, Est GFR (MDRD) Af Amer 149, Est GFR (MDRD) Non-Af 123, BUN/Creatinine Ratio 18.4, Glucose 70 L, Calcium 8.3 L 02/22/19 07:50: PT 13.9, INR 1.1, APTT 26.1 02/22/19 10:00: Fluid Glucose Pending, Fluid Total Protein Pending, Fluid LDH Pending 02/22/19 10:00: Fluid pH Pending 02/22/19 10:00: Fluid Source Pending, Fluid Color Pending, Fluid Appearance Pending, Fluid WBC Pending, Fluid RBC Pending, Fluid Tot Cell Count Pending, Fl Pathologist Comment Pending, Fluid Comment 2 Pending 02/22/19 10:00: Miscellaneous Cytology Pending Clinical Impression(s) from Imaging Studies Chest X-Ray 02/21/19 08:42 IMPRESSION: Slight increase in size of the right pleural effusion. The remainder of the examination is unchanged. Electronically Signed: Abenr Santana, at 15:35 EDT , Service support , Current Medications Albuterol/Ipratropium (Duoneb) 3 ml INHALATION Q4HWA.RT [facility] Last Admin: 02/22/19 07:33 Dose: 3 ml Documented by: Aspirin (Ecotrin) 81 mg PO DAILY@0800 [facility] Last Admin: 02/21/19 09:58 Dose: 81 mg Documented by: Dextrose (D50w Syringe) 0 gm IV X1 PRN; Protocol PRN Reason: Hypoglycemia Enoxaparin Sodium (Lovenox) 40 mg SC DAILY@1000 [facility] Last Admin: 02/21/19 14:52 Dose: Not Given Documented by: Furosemide (Lasix) 40 mg IV BID [facility] Last Admin: 02/21/19 22:10 Dose: 40 mg Documented by: Glucagon () 1 mg IM .X1 PRN PRN Reason: Hypoglycemia Lisinopril (Zestril) 10 mg PO DAILY [facility] Last Admin: 02/21/19 09:58 Dose: 10 mg Documented by: Prednisone () 40 mg PO DAILY@0800 [facility] Last Admin: 02/21/19 09:58 Dose: 40 mg Documented by: Sodium Chloride () 10 - 40 ml IV UD PRN PRN Reason: SALINE FLUSH Last Admin: 02/21/19 22:10 Dose: 20 ml Documented by: Medical Necessity - Tobacco Use Smoking Status: Heavy Smoker (>10/day) Tobacco Use: Cigarettes Assessment/Plan RECOMMENDATIONS: 1. Continue Lasix therapy 2. Recommendations on pleural effusion labs when available 3. Will need to ambulate on 6 L or less to be discharged 4. Continue BiPAP therapy with naps and nightly at a minimum. BiPAP rescue if indicated during the day 5. Maintain oxygen saturations 88 to 92% to prevent paradoxical CO2 retention. 6. Continue scheduled DuoNeb while awake and prednisone 40 mg daily. Wean prednisone over 12 to 14 days 7. Recommend outpatient pulmonary follow-up within 2 weeks of discharge. IMPRESSIONS: 1. Acute combined respiratory failure/pleural effusion Clinical suspicion for multifactorial etiology. Patient likely has relatively significant COPD secondary to smoking history. Given lower extremity edema, pleural effusions and ascites, concern for right heart failure would also be suggested. Patient has polycythemia indicating prolonged hypoxemia as an outpatient. Patient is receiving IV diuretic therapy and is diuresing appropriately. Patient is having some improvement with diuretic therapy. Echocardiogram is suggestive of cor pulmonale, but anticipate this is secondary to prolonged hypoxemia. Will attempt to address hypoxemia and then readdress with echo in the future. Prednisone can likely be weaned over the next 12 to 14 days. Still clinically suspicious the patient will require supplemental oxygen on discharge. Anticipate transudative etiology, but labs are currently pending. Patient with good clinical response to removal. 2. Polycythemia Suspect this may be secondary to hypoxemia on her home environment, given the patient's prolonged smoking history. It is highly possible that she may require supplemental O2 upon discharge from the hospital. 3. Chronic alcohol and tobacco dependency The patient reports that she has been abstinent from alcohol consumption now for 1 month. However, prior to this, she was a heavy drinker. Recent CT abdomen showed no radiographic evidence of cirrhosis. Ascites may be secondary to right heart failure. Patient reports she has quit smoking. Nicotine replacement therapy can be offered to her while admitted to the hospital. I would recommend outpatient pulmonary follow-up upon discharge.
[2019-02-22] MEDS: Furosemide 40 MG/4 ML Vial IV (10:59)
[2019-02-22 11:00] LABS: Body Fluid Mononuclear WBC % 81.5 %; Body Fluid Polynuclear WBC # 0.068 10^3/uL; Body Fluid Polynuclear WBC % 18.5 %; Body Fluid Total Cells Counted 0.454 10^3/ul; White Blood Count/Body Fluid 0.368 10^3/uL
[2019-02-22] MEDS: Aspirin E.C. 81 MG Tablet PO (11:00)
[2019-02-22] MEDS: Lisinopril 10 MG Tablet PO (11:01)
[2019-02-22] MEDS: predniSONE 20 MG Tablet 40 MG PO (11:01)
[2019-02-22 11:12] LABS: Glucose, Body Fluid 82 mg/dL (40-70); LDH,Body Fluid 70 Units/l (Not Establ.); Protein, Body Fluid 2.2 g/dL (Not Establ.)
[2019-02-22 11:16] LABS: Auto B Fluid Analyzer BKGD Ct COUNTS W/IN LIMITS (W/IN LIMITS); Source- Body Fluid THORACENTESIS
[2019-02-22 11:17] LABS: Appearance/Body Fluid CLEAR; Color/Body Fluid YELLOW
[2019-02-22 12:14] LABS: Red Cell Count/Body Fluid 85 /mm3
[2019-02-22 12:18] LABS: Lymphocytes 44 %; Macrophages 40 %; Neutrophil (Segs) 15 %; Other Cell Type/BF 1 %
[2019-02-22 12:21] LABS: Body Fluid QC Type(s) BF1,BF2
--- NOTE | 2019-02-22 13:14 | NURSING ---
Read and reviewed SN documentation
--- NOTE | 2019-02-22 13:34 | PN_ITS ---
Subjective: Patient seen and examined. Underwent right-sided thoracentesis this morning. Reports improvement in breathing following procedure. Continues to require 4 L nasal cannula with ambulation. - Physical Exam Vitals/I&O's: Vital Signs Temp Pulse Resp BP Pulse Ox 97.8 F 76 18 123/76 H 91 02/22/19 12:08 02/22/19 12:08 02/22/19 12:08 02/22/19 12:08 02/22/19 12:08 Oxygen Flow Rate (L/min) [5] 4 Oxygen Flow Rate (L/min) [4] 4 Oxygen Flow Rate (L/min) [3] 4 Oxygen Flow Rate (L/min) [2] 4 Oxygen Flow Rate (L/min) [1 ( 4 Initial Baseline)] Oxygen Flow Rate (L/min) [ 4 AMBULATION with Oxygen] Oxygen Flow Rate (L/min) 4 Oxygen Delivery Method [5] Nasal Cannula Oxygen Delivery Method [4] Nasal Cannula Oxygen Delivery Method [3] Nasal Cannula Oxygen Delivery Method [2] Nasal Cannula Oxygen Delivery Method [1 ( Nasal Cannula Initial Baseline)] Oxygen Delivery Method Nasal Cannula Weight: 185 lb 10.067 oz Body Mass Index (BMI) 35.2 Intake and Output for Last 24 Hours 02/20/19 02/21/19 02/22/19 23:59 23:59 23:59 Intake Total 1160 / 1160 1050 / 1050 660 / 660 Output Total 4350 / 4350 4950 / 4950 1700 / 1700 Balance -3190 / -3190 -3900 / -3900 -1040 / -1040 General: Alert, Oriented x3, Cooperative HEENT: Atraumatic, PERRLA, EOMI, Normocephalic Neck: Supple, No JVD, Negative Carotid Bruits Lungs: Clear to auscultation, Diminished Cardiovascular: Regular rate, Regular Rhythm, Normal S1, Normal S2, No murmurs Abdomen: Bowel Sounds Present, Soft, Non Tender, Non-Distended Extremities: No clubbing, No cyanosis, Edema - Bilateral lower extremity edema Skin: No rashes, No breakdown, - - Chronic skin changes bilateral lower extremities with hyperpigmentation Musculoskeletal: No Tenderness to Palpation of Joints or Extremities Neurological: Cranial nerves II-XII grossly intact, Neuro grossly intact Psych/Mental Status: Normal Affect, Appropriate Microbiology Past 72 Hours 02/22/19 10:00 Fluid - Thoracentesis Fluid Gram Stain - Final Laboratory Results 02/21/19 05:16: Lactate Dehydrogenase 180, Total Protein 5.6 L, Globulin 3.0, Albumin/Globulin Ratio 0.9 02/22/19 05:35: WBC 7.9, RBC 5.23, Hgb 16.6 H, Hct 50.8 H, MCV 97.1, MCH 31.7, MCHC 32.7, RDW Std Deviation 49.7 H, RDW Coeff of Charles 14.0, Plt Count 170, MPV 9.9 02/22/19 05:35: Sodium 141, Potassium 3.4 L, Chloride 91 L, Carbon Dioxide > 45.0 H*, Anion Gap TNP, BUN 10, Creatinine 0.54 L, Estim Creat Clear Calc 97.37, Est GFR (MDRD) Af Amer 149, Est GFR (MDRD) Non-Af 123, BUN/Creatinine Ratio 18.4, Glucose 70 L, Calcium 8.3 L 02/22/19 07:50: PT 13.9, INR 1.1, APTT 26.1 02/22/19 10:00: Fluid Glucose 82 H, Fluid Total Protein 2.2, Fluid LDH 70 02/22/19 10:00: Fluid pH Pending 02/22/19 10:00: Fluid Source THORACENTESIS, Fluid Color YELLOW, Fluid Appearance CLEAR, Fluid WBC 0.368, Fluid RBC 85, Fluid Tot Cell Count 0.454 H, Fld Polynuclear WBCs # 0.068, Fld Polynuclear WBCs % 18.5, Fluid Mononuclear WBCs 0.300, Fld Mononuclear WBCs % 81.5, Fluid Neutrophils 15, Fluid Lymphocytes 44, Fluid Macrophages 40, Fluid Other Cells 1, Fl Pathologist Comment May follow, Fluid Comment 2 SEE COMMENT 02/22/19 10:00: Miscellaneous Cytology Pending Current Medications Albuterol/Ipratropium (Duoneb) 3 ml INHALATION Q4HWA.RT [facility] Last Admin: 02/22/19 11:06 Dose: 3 ml Documented by: Aspirin (Ecotrin) 81 mg PO DAILY@0800 [facility] Last Admin: 02/22/19 11:00 Dose: 81 mg Documented by: Dextrose (D50w Syringe) 0 gm IV X1 PRN; Protocol PRN Reason: Hypoglycemia Enoxaparin Sodium (Lovenox) 40 mg SC DAILY@1000 [facility] Last Admin: 02/21/19 14:52 Dose: Not Given Documented by: Furosemide (Lasix) 40 mg IV BID [facility] Last Admin: 02/22/19 10:59 Dose: 40 mg Documented by: Glucagon () 1 mg IM .X1 PRN PRN Reason: Hypoglycemia Lisinopril (Zestril) 10 mg PO DAILY [facility] Last Admin: 02/22/19 11:01 Dose: 10 mg Documented by: Prednisone () 40 mg PO DAILY@0800 [facility] Last Admin: 02/22/19 11:01 Dose: 40 mg Documented by: Sodium Chloride () 10 - 40 ml IV UD PRN PRN Reason: SALINE FLUSH Last Admin: 02/21/19 22:10 Dose: 20 ml Documented by: Medical Necessity - Tobacco Use Smoking Status: Heavy Smoker (>10/day) Tobacco Use: Cigarettes Assessment/Plan 1. Acute hypoxic respiratory failure secondary to CHF with large right pleural effusion-continue supplement oxygen to maintain O2 at or above 90%. Pulmonary medicine consulted. Walking pulse ox prior to discharge. Outpatient follow-up with pulmonary medicine. Continue BiPAP as needed. Pulmonary medicine initiated prednisone taper due to suspected underlying COPD as well. 2. Acute diastolic CHF, right pleural effusion-Patient reports approximate 30 pound weight gain. Continue IV Lasix 40 mg twice daily. Strict I&O. Daily weight. Juan Luis wraps bilateral lower extremities. Echocardiogram demonstrates an EF of 55%, stage I diastolic dysfunction, pulmonary artery systolic pressure 48 mmHg. Small pericardial effusion. Patient underwent right-sided thoracentesis with removal of 1170 mL fluid. Pleural fluid analysis pending. 3. Polycythemia-suspect secondary polycythemia as a result of hypoxemia/long- term smoking history. 4. Chronic alcohol [id number] alcohol use, quit approximately 1 month ago. 5. Tobacco dependence-encourage cessation. DVT prophylaxis- Lovenox sc This patient was seen by LUKE Carroll under the supervision of Dr. Hernandez.
--- NOTE | 2019-02-22 14:28 | CASEMGMT ---
SW spoke with patient and her as patient will need home O2 and they do not have insurance. SW let them know the private pay cost is $158.71 per month through [employer]. SW explained that [employer] would need the money up front and they will need a credit card on file. They said they would be able to afford this cost. SENA let EBONY FOX know this information. Felecia PRESLEY MSW
--- NOTE | 2019-02-22 15:14 | DCINST_ITS ---
You will use the following diet at home:: Cardiac, Fluid restricted (specify 2000 mls, 1500 mls) - 150cc fluid restriction, 2G sodium restriction Discharge Activity: Return to Normal Activity Call your doctor if you observe: Shortness of breath, Dizziness, Fainting spells, Chest pain Allergies/Adverse Reactions: Allergies No Known Allergies Allergy (Verified 02/18/19 14:46) Medications to take at Discharge Furosemide [Lasix] 40 mg PO BIDLX #60 tab 02/22/19 Ipratropium/Albuterol Sulfate [Duoneb] 3 ml INHALATION Q4HWA.RT #120 ampul.neb 02/22/19 Lisinopril [Zestril] 10 mg PO DAILY #30 tab 02/22/19 predniSONE tablet See Taper PO DAILY@0800 #30 tab 02/22/19 The following prescriptions were given: Ipratropium/Albuterol Sulfate [Duoneb] 3 ml INHALATION Q4HWA.RT #120 ampul.neb Transmission Status: Received by [facility] Furosemide [Lasix] 40 mg PO BIDLX #60 tab Transmission Status: Pending to [facility] predniSONE tablet See Taper PO DAILY@0800 #30 tab Transmission Status: Pending to [facility] Lisinopril [Zestril] 10 mg PO DAILY #30 tab Transmission Status: Pending to [facility] Primary Care Physician: NOT,DEFINED [NON-STAFF] - Please follow up with your Primary Care Physician in: 1 Week Test Results: Test results from this visit will be discussed in further detail at your follow- up appointment, if applicable. Please Follow Up With: Ed Jiang DO - May see [employer]INE TENDER When: 2 Weeks Proposed Discharge Date: 02/22/19
--- NOTE | 2019-02-22 15:17 | PCM.DC.SUM ---
Discharge Date and Diagnosis Date of Admission: 02/18/19 Date of Discharge: 02/22/19 - Primary Discharge Diagnosis 1. Acute hypoxic respiratory failure secondary to CHF with large right pleural effusion 2. Acute diastolic CHF, right pleural effusion 3. Polycythemia 4. Chronic alcohol abuse 5. Tobacco dependence Hospital Course and Treatment Imaging Results: Diagnostic Data Abdomen/Pelvis CT 02/18/19 16:38 IMPRESSION: Moderate diffuse free fluid. No other definite acute abnormalities although evaluation of the GI tract is limited because oral contrast was not given. Electronically Signed: Wilmer Diaz MD at 17:24 EDT , Service support , Chest CT 02/18/19 16:38 IMPRESSION: 1. Large right and trace left pleural effusions with right more than left pulmonary volume loss/atelectasis. 2. Right upper abdominal ascites (small-volume) partially visualized. 3. Body wall edema. Skin thickening of the bilateral breasts. 4. Mild cardiomegaly. Electronically Signed: Augustin Landon MD ([place]) at 17:31 EDT , Service support , Thoracentesis Ultrasound 02/22/19 09:30 IMPRESSION: Ultrasound-guided right thoracentesis. Electronically Signed: Abner Santana, at 12:36 EDT , Service support , Chest X-Ray 02/22/19 10:17 IMPRESSION: Status post right thoracentesis. No evidence of pneumothorax. Electronically Signed: Abner Santana, at 14:09 EDT , Service support , Dr. Jiang- Pulmonary Medicine Operations: None Procedures: 2-D Echocardiogram, Thoracentesis Summary of Care Provided: The patient is a 53 year old F admitted 02/18/2019 due to shortness of breath. 1. Acute hypoxic respiratory failure secondary to CHF with large right pleural effusion-continue supplement oxygen to maintain O2 at or above 89%. Pulmonary medicine consulted. Walking pulse ox completed prior to discharge and patient will need to wear 5 L nasal cannula with ambulation, 4 L at rest. May wean as tolerated to maintain O2 at or above 89%. Patient is ambulatory in the home. Prednisone taper at discharge due to underlying suspected COPD. Follow-up with pulmonary medicine in 2 weeks. 2. Acute diastolic CHF, right pleural effusion-Patient reports approximate 30 pound weight gain. IV Lasix during admission, transition to oral Lasix 40 mg twice daily at discharge. Continue bilateral JORGE L hose. Echocardiogram demonstrates an EF of 55%, stage I diastolic dysfunction, pulmonary artery systolic pressure 48 mmHg. Small pericardial effusion. Patient underwent right-sided thoracentesis with removal of 1170 mL fluid. Initial pleural fluid appears transudative. Patient instructed on fluid restriction, sodium restriction and daily weight. Follow-up with pulmonary medicine in 2 weeks. 3. Polycythemia-suspect secondary polycythemia as a result of hypoxemia/long-term smoking history. 4. Chronic alcohol [id number] alcohol use, quit approximately 1 month ago. 5. Tobacco dependence-encourage cessation. General: Alert, Oriented x3, Cooperative HEENT: Atraumatic, PERRLA, EOMI, Normocephalic Neck: Supple, No JVD, Negative Carotid Bruits Lungs: Clear to auscultation, Diminished Cardiovascular: Regular rate, Regular Rhythm, Normal S1, Normal S2, No murmurs Abdomen: Bowel Sounds Present, Soft, Non Tender, Non-Distended Extremities: No clubbing, No cyanosis, Edema - Bilateral lower extremity edema Skin: No rashes, No breakdown, - - Chronic skin changes bilateral lower extremities with hyperpigmentation Musculoskeletal: No Tenderness to Palpation of Joints or Extremities Neurological: Cranial nerves II-XII grossly intact, Neuro grossly intact Psych/Mental Status: Normal Affect, Appropriate Patient seen and examined prior to discharge. Physical assessment as noted above. Patient is stable for discharge with follow up recommendations as noted above. This patient was seen by LUKE Carroll under the supervision of Dr. Hernandez. - Physical Exam Vitals/I&O's: Vital Signs Temp Pulse Resp BP Pulse Ox 97.8 F 77 18 123/76 H 91 02/22/19 12:08 02/22/19 14:52 02/22/19 12:08 02/22/19 12:08 02/22/19 12:08 Oxygen Flow Rate (L/min) [5] 4 Oxygen Flow Rate (L/min) [4] 4 Oxygen Flow Rate (L/min) [3] 4 Oxygen Flow Rate (L/min) [2] 4 Oxygen Flow Rate (L/min) [1 ( 4 Initial Baseline)] Oxygen Flow Rate (L/min) [ 4 AMBULATION with Oxygen] Oxygen Flow Rate (L/min) 4 Oxygen Delivery Method [5] Nasal Cannula Oxygen Delivery Method [4] Nasal Cannula Oxygen Delivery Method [3] Nasal Cannula Oxygen Delivery Method [2] Nasal Cannula Oxygen Delivery Method [1 ( Nasal Cannula Initial Baseline)] Oxygen Delivery Method Nasal Cannula Weight: 185 lb 10.067 oz Body Mass Index (BMI) 35.2 Intake and Output for Last 24 Hours 02/20/19 02/21/19 02/22/19 23:59 23:59 23:59 Intake Total 1160 / 1160 1050 / 1050 660 / 660 Output Total 4350 / 4350 4950 / 4950 1700 / 1700 Balance -3190 / -3190 -3900 / -3900 -1040 / -1040 Microbiology Past 72 Hours 02/22/19 10:00 Fluid - Thoracentesis Fluid Gram Stain - Final Laboratory Results 02/22/19 05:35: WBC 7.9, RBC 5.23, Hgb 16.6 H, Hct 50.8 H, MCV 97.1, MCH 31.7, MCHC 32.7, RDW Std Deviation 49.7 H, RDW Coeff of Charles 14.0, Plt Count 170, MPV 9.9 02/22/19 05:35: Sodium 141, Potassium 3.4 L, Chloride 91 L, Carbon Dioxide > 45.0 H*, Anion Gap TNP, BUN 10, Creatinine 0.54 L, Estim Creat Clear Calc 97.37, Est GFR (MDRD) Af Amer 149, Est GFR (MDRD) Non-Af 123, BUN/Creatinine Ratio 18.4, Glucose 70 L, Calcium 8.3 L 02/22/19 07:50: PT 13.9, INR 1.1, APTT 26.1 02/22/19 10:00: Fluid Glucose 82 H, Fluid Total Protein 2.2, Fluid LDH 70 02/22/19 10:00: Fluid pH Pending 02/22/19 10:00: Fluid Source THORACENTESIS, Fluid Color YELLOW, Fluid Appearance CLEAR, Fluid WBC 0.368, Fluid RBC 85, Fluid Tot Cell Count 0.454 H, Fld Polynuclear WBCs # 0.068, Fld Polynuclear WBCs % 18.5, Fluid Mononuclear WBCs 0.300, Fld Mononuclear WBCs % 81.5, Fluid Neutrophils 15, Fluid Lymphocytes 44, Fluid Macrophages 40, Fluid Other Cells 1, Fl Pathologist Comment May follow, Fluid Comment 2 SEE COMMENT 02/22/19 10:00: Miscellaneous Cytology Pending Current Medications Albuterol/Ipratropium (Duoneb) 3 ml INHALATION Q4HWA.RT [facility] Last Admin: 02/22/19 15:12 Dose: 3 ml Documented by: Aspirin (Ecotrin) 81 mg PO DAILY@0800 [facility] Last Admin: 02/22/19 11:00 Dose: 81 mg Documented by: Dextrose (D50w Syringe) 0 gm IV X1 PRN; Protocol PRN Reason: Hypoglycemia Enoxaparin Sodium (Lovenox) 40 mg SC DAILY@1000 [facility] Last Admin: 02/21/19 14:52 Dose: Not Given Documented by: Furosemide (Lasix) 40 mg IV BID [facility] Last Admin: 02/22/19 10:59 Dose: 40 mg Documented by: Glucagon () 1 mg IM .X1 PRN PRN Reason: Hypoglycemia Lisinopril (Zestril) 10 mg PO DAILY [facility] Last Admin: 02/22/19 11:01 Dose: 10 mg Documented by: Prednisone () 40 mg PO DAILY@0800 [facility] Last Admin: 02/22/19 11:01 Dose: 40 mg Documented by: Sodium Chloride () 10 - 40 ml IV UD PRN PRN Reason: SALINE FLUSH Last Admin: 02/21/19 22:10 Dose: 20 ml Documented by: Discharge Diet: Low fat/ Low Cholesterol, 8 Cup Fluid Restriciton, 2000 mg Sodium Diet Discharge Activity: Return to Normal Activity Call your doctor if you observe: Shortness of breath, Dizziness, Fainting spells, Chest pain Home Medications: Medications to take at Discharge Furosemide [Lasix] 40 mg PO BIDLX #60 tab 02/22/19 Ipratropium/Albuterol Sulfate [Duoneb] 3 ml INHALATION Q4HWA.RT #120 ampul.neb 02/22/19 Lisinopril [Zestril] 10 mg PO DAILY #30 tab 02/22/19 predniSONE tablet See Taper PO DAILY@0800 #30 tab 02/22/19 Following Prescrptions Were Given to Patient: Ipratropium/Albuterol Sulfate [Duoneb] 3 ml INHALATION Q4HWA.RT #120 ampul.neb Transmission Status: Received by [facility] Furosemide [Lasix] 40 mg PO BIDLX #60 tab Transmission Status: Pending to [facility] predniSONE tablet See Taper PO DAILY@0800 #30 tab Transmission Status: Pending to [facility] Lisinopril [Zestril] 10 mg PO DAILY #30 tab Transmission Status: Pending to [facility] Primary Care Physician: NOT,DEFINED [NON-STAFF] - Please follow up with your Primary Care Physician in: 1 Week Please Follow Up With: Ed Jiang DO - May see [employer] When: 2 Weeks Disposition: Home Minutes spent on discharge:: 35 Patient Condition:: Stable Medical Necessity - Tobacco Use Smoking Status: Heavy Smoker (>10/day) Tobacco Use: Cigarettes Meaningful Use Info Meaningful Use Diagnoses (Choose all that apply): CHF - CHF VIRGIL/ARB ordered at discharge?: Yes Documented LVEF (%): 55
--- NOTE | 2019-02-22 15:24 | PCA ---
List of area PCPs provided to pt with discharge paperwork.
--- NOTE | 2019-02-22 15:55 | CASEMGMT ---
Per Michele BECK, pt does qualify for home oxygen at this time. Pt aware that self-pay [facility] through [employer] is $158.71 for home oxygen and $50 for a reconditioned nebulizer which is also being ordered. Pt is agreeable to both at this time. Order faxed to [employer] and call to [facility] to notify of referral at this time, Ninfa voices understanding. Pt's meds sent to [facility] retail pharmacy at this time. Dr. Hernandez/Kristin BECK aware of all, voice understanding. Pt is awaiting oxygen tank/nebulizer for disposition at this time. Pt states no concerns with paying for oxygen/nebulizer and meds at this time. Tyree BECK CM
[2019-02-23 13:40] LABS: Pathologist Comment/Body Fluid Reviewed
[2019-02-25 13:44] LABS: pH, Body Fluid 11254 7.6 (Not Estab.)
[2019-02-27 11:59] LABS: Pathologist Review Reviewed
== END 2019-02-22 17:12 | disposition home or self-care (01) | DRG 291 ==
LOC: ED 15:29 → PCU 17:06
PROVIDERS: Nurse Practitioner Family; Admitting Provider Student in an Organized Health Care Education/Training Program; Emergency Provider Emergency Medicine; Visit Provider Internal Medicine
DX: I50.31 Acute diastolic (congestive) heart failure (principal); J96.01 Acute respiratory failure with hypoxia; R18.8 Other ascites; J91.8 Pleural effusion in other conditions classified elsewhere; D75.1 Secondary polycythemia; F17.210 Nicotine dependence, cigarettes, uncomplicated; F10.10 Alcohol abuse, uncomplicated; I27.20 Pulmonary hypertension, unspecified
CPT/HCPCS: 32555; 36415; 36600; 71045; 71046; 71260; 74177; 80048; 80061; 80076; 82803; 82945; 83615; 83735; 83880; 83986; 84156; 84157; 84484; 85025; 85027; 85610; 85730; 87070; 87075; 87205; 88108; 88305; 88313; 89050; 93005; 93306; 94002; 94003; 94640; 97116; 97161; 97165; 97530; 97802; 97803; 99251; 99285; 99406; Q9967; A4216; G0463; J1940

== ENCOUNTER → 2019-03-27 07:29 | Outpatient (CLI) | payer SELFPAY ==
[2019-03-09 09:42] VITALS: BMI 26.7
--- NOTE | 2019-03-27 10:58 | PFTCOMP_ITS ---
COMPLETE PULMONARY FUNCTION TEST INTERPRETATION Brief HPI: Patient is a 54 year old female, currently under the care of Kyra Naranjo, who presents to [facility] for complete pulmonary function tests secondary to diagnosis of COPD. Respiratory therapist reports good effort and reproducible results. Interpretation: Forced expiration spirometry shows a moderately severe large airways obstructive ventilatory defect with an FEV1 of 71% predicted. There is a significant bron chodilator response in FEV1 by strict ATS criteria. Spirograms are of good quality and plateau slowly, indicating slowly emptying areas of the lungs. The respiratory flow volume loop shows decreased expiratory flow rates at high lung volumes consistent with small airways obstruction. Lung volumes by body plethysmography show a normal total lung capacity at 4.5 L, 95% predicted. All other lung volumes are within normal limits. Diffusion capacity by carbon monoxide is at the lower limit of normal at 74% predicted. The airway resistance is slightly elevated. No previous pulmonary function tests were available for review. Impression: Fully reversible moderately severe large airways obstructive ventilatory defect and a pattern consistent with asthma.
== END ==
PROVIDERS: Referring Provider Nurse Practitioner Acute Care; Visit Provider Nurse Practitioner Acute Care
DX: J44.9 Chronic obstructive pulmonary disease, unspecified (principal)
CPT/HCPCS: 94060; 94726; 94729

== ENCOUNTER → 2019-05-10 15:44 | Outpatient (CLI) | payer SELFPAY ==
[2019-05-10 12:34] VITALS: BMI 27.8
[2019-05-10 17:38] LABS: Thyroid Stim Hormone (TSH) 2.41 uIU/mL (0.358-3.74)
== END ==
PROVIDERS: PCP Family Medicine; Visit Provider Internal Medicine Cardiovascular Disease
DX: I50.32 Chronic diastolic (congestive) heart failure (principal)
CPT/HCPCS: 36415; 84443